=== PATIENT | female | born 1965 | race Caucasian/White ===

== ENCOUNTER 2022-06-28 08:58 | Emergency (ER) | payer BC, SELFPAY ==
[2022-06-28 09:04] VITALS: BP 120/72; PULSE 120; RESP 20; TEMP 37.2; O2SAT 90; BMI 24.9
--- NOTE | 2022-06-28 09:22 | CRLHL7_ITS ---
For Patients: As a result of the Cures Act, medical imaging exams and procedure reports are released immediately into your electronic medical record. You may view this report before your referring provider. If you have questions, please contact your health care provider. INDICATION: COUGH TECHNIQUE: Chest 2 views COMPARISON: None FINDINGS: Cardiovascular and mediastinum: Heart size and vasculature are normal in caliber and appearance. Lungs and pleural spaces: Patchy airspace densities right upper lobe. No sign of pleural effusion. No pneumothorax. Bones and soft tissues: No significant findings. IMPRESSION: Right upper lobe pneumonia. Dictated by Jose Sanderson MD @ 06/28/2022 10:19:20 AM (Electronically Signed)
--- NOTE | 2022-06-28 09:23 | ED_ITS ---
HPI - General Adult General Chief complaint: Shortness of Breath/Dyspnea Stated complaint: cough Time Seen by Provider: 06/28/22 09:18 History of Present Illness HPI narrative: This 56-year-old female comes in reporting cough and some shortness of breath. She does have a history of COPD and states that her oximetry is typically around 92%. She does have oxygen that she uses at home on occasion. She states that she began to feel ill with upper respiratory infection about 2 and half days ago. She states that her daughter was positive for RSV. She does not report any fevers. She does arrive with tachycardia and heart rate at 120 beats per minute. She does not report any chest pain. Related Data Home Medications Medication Instructions Recorded Confirmed albuterol sulfate 90 mcg/actuation inhalation 06/28/22 aerosol inhaler amitriptyline 10 mg tablet mg 06/28/22 fluticasone 250 mcg-salmeterol 50 inhalation 06/28/22 mcg/dose blistr powdr for inhalation (Advair Diskus) loperamide 2 mg capsule mg 06/28/22 roflumilast 500 mcg tablet mcg 06/28/22 tiotropium bromide 18 mcg capsule inhalation 06/28/22 with inhalation device (Spiriva with HandiHaler) Previous Rx's Medication Instructions Recorded levofloxacin 500 mg tablet 500 mg PO DAILY 10 days #10 tabs 06/28/22 Allergies Allergy/AdvReac Type Severity Reaction Status Date / Time Sulfa (Sulfonamide Allergy Verified 06/28/22 09:08 Antibiotics) Review of Systems Status of ROS: Reports: 10 or more systems reviewed and unremarkable except as noted in History and below Narrative: Constitutional: No fevers, no weight gain or loss. Eyes: No discharge. No vision changes. HENT: No congestion, no sore throat, no ear pain. Cardiovascular: No chest pain, no palpitations. Respiratory: Cough and shortness of breath. History of COPD. Gastrointestinal: No abdominal pain, no vomiting, no diarrhea. Genitourinary: No dysuria, no hematuria. Musculoskeletal: Normal range of motion. Skin: No rashes, no pruritis. Neurological: No dizziness, weakness, sensory change, speech change. Endo/Heme/Allergies: No bruising or bleeding. No polydipsia. Pysch: no suicidality, no anxiety, no insomnia. All other systems reviewed and are negative. PFSH PFSH Social History Smoking Status: Never smoker Do you use any of these nicotine containing products: None How often do you have a drink containing alcohol: never How often do you have six or more drinks on one occasion: Never AUDIT-C Alcohol total score: 0 Exam Narrative: Exam Narrative: Constitutional: Well-developed, well-nourished, no acute distress. HEENT: Normocephalic, atraumatic. Neck: Normal range of motion. Nontender. Supple. Heart: Regular. No murmurs. Tachycardia. Intact distal pulses. Lungs: Clear to auscultation. No chest discomfort. No wheezes, rhonchi, or rales. Abdomen: Normal bowel sounds. Nontender. No rebound tenderness. Genitalia: Deferred. Back: No midline tenderness. Normal range of motion. Extremities: Normal range of motion. No injury. Skin: Intact. No rash. Warm. No erythema or pallor. Neurologic: No altered sensation. No weakness. Alert and oriented. Psychiatric: No suicidality. No anxiety or depression. No insomnia. Nursing notes and vitals signs are reviewed. Const: Vital Signs, click to edit/add: Vital Signs - 24 hr 06/28/22 09:04 Temperature 98.9 F Pulse Rate [Right Pulse Oximeter] 120 H Respiratory Rate 20 Blood Pressure [Ri ght Upper Arm] 120/72 Pulse Oximetry 90 Oxygen Delivery Me thod Room Air Course Vital Signs Vital signs: Initial Vital Signs Temperature 98.9 F 06/28/22 09:04 Temperature Source Temporal Artery Scan 06/28/22 09:04 Pulse Rate 120 H 06/28/22 09:04 Respiratory Rate 20 06/28/22 09:04 Blood Pressure 120/72 06/28/22 09:04 Blood Pressure Mean 88 06/28/22 09:04 Blood Pressure Position Sitting 06/28/22 09:04 Pulse Oximetry 90 06/28/22 09:04 Oxygen Delivery Method 06/28/22 09:04 Vital Signs Temperature 98.9 F 06/28/22 09:04 Pulse Rate 120 H 06/28/22 09:04 Respiratory Rate 20 06/28/22 09:04 Blood Pressure 120/72 06/28/22 09:04 Pulse Oximetry 90 06/28/22 09:04 Oxygen Delivery Method 06/28/22 09:04 Temperature 98.9 F 06/28/22 09:04 Pulse Rate 120 H 06/28/22 09:04 Respiratory Rate 20 06/28/22 09:04 Blood Pressure 120/72 06/28/22 09:04 Pulse Oximetry 90 06/28/22 09:04 Oxygen Delivery Method 06/28/22 09:04 Medical Decision Making MDM Narrative Medical decision making narrative: This patient comes in with cough and increasing shortness of breath. She does have a baseline COPD history. She does have oxygen in a can and that she uses as needed. She does have some tachycardia but is maintaining her typical baseline oximetry. Chest x-ray shows evidence of a pneumonia in the right upper lobe. Patient received a prescription for Levaquin. She has an appointment to follow-up with her primary physician. The patient did receive an oral dose of dexamethasone here. She has breathing treatments that she uses regularly and as needed at home. Imaging Data Chest x-ray: Radiologist's impression: Right upper lobe pneumonia. Discharge Plan Discharge Clinical Impression: Community acquired pneumonia Patient Disposition: Home, Self-Care Condition: Unchanged Additional Instructions: Take medication as prescribed. Follow up with MD or return if worsening symptoms happen. Prescriptions: New levofloxacin 500 mg tablet 500 mg PO DAILY 10 Days Qty: 10 0RF No Action fluticasone propion-salmeterol [Advair Diskus] 250-50 mcg/dose blister with device INHALATION Label Comments: INHALE 1 PUFF BY MOUTH EVERY 12 HOURS loperamide 2 mg capsule Label Comments: TAKE 1 CAPSULE BY MOUTH EVERY MORNING amitriptyline 10 mg tablet albuterol sulfate 90 mcg/actuation HFA aerosol inhaler INHALATION Label Comments: INHALE 1 TO 2 PUFFS BY MOUTH EVERY 4 HOURS WHILE AWAKE Spiriva with HandiHaler 18 mcg capsule, w/inhalation device INHALATION roflumilast 500 mcg tablet Follow Up/Referrals: Romel Moffett MD [Primary Care Provider] - Stand Alone Forms: [facility] Info Instructions
[2022-06-28] MEDS: IPRAT-ALBUT 0.5-2.5 MG/3 ML NEB 1 NEB IH (09:53)
[2022-06-28] MEDS: dexAMETHasone 10 MG/ML inj PO (09:53)
--- OUTSIDE RECORDS SUMMARY | 2022-06-28 10:12 | XMS_ITS | Clinical Summary ---
:1965 Author Organization [facility] [employer] [facility] [place] [address] Care Team Providers Name Role Phone Romel Moffett MD Primary Care Provider Allergies Active Allergy Reactions Severity Noted Date Comments Aspartame Headache 08/18/2021 Egg 2010 Gi Gluten Diarrhea 05/16/2015 Hepatitis B Virus GI Upset, Headache 02/11/2012 Vaccine Influenza Vacc,Tri 2007 Diarrhea, Fever, 09/16/2013 (Live) Vomiting Milk Containing Diarrhea 04/06/2016 Products Tetanus And Diphtheria Fever, GI Bleeding, 03/13/2013 Patient states that Toxoids, Adsorbed, Headache she was n ot able use Adult her arm for two days, sore and limited movemen t, numbness and mu scle seem to spasm. Medications Medication Sig Dispensed Refills Start End Date Status Date fluticasone Inhale 1 Puff 180 Each 3 Acti ve propion-salmeteroL by mouth every 1 (Advair Diskus) 12 hours. 250-50 mcg/Dose diskus inhalerIndications : Chronic obstructive pulmonary disease, unspecified COPD type (HC) albuterol HFA Inhale 1-2 3 Each 4 Activ e (PRO-AIR; Puffs by mouth 1 VENTOLIN; every 4 hours PROVENTIL) 90 while awake. mcg/actuation inhalerIndications : Chronic obstructive pulmonary disease, unspecified COPD type (HC) amitriptyline Take 1 Tablet 180 tablet. 3 Active (ELAVIL) 10 mg (10 mg) by 1 tabletIndications: mouth 2 times Irritable bowel daily. syndrome with diarrhea loperamide Take 2 mg 90 Tablet 3 Active (IMODIUM) 2 mg daily in the 1 tabletIndications: AM Irritable bowel syndrome with diarrhea loperamide Take 2 mg by 0 Active (IMODIUM) 2 mg mouth. 1 capsule roflumilast Take 500 mcg 90 Tablet 3 Activ e (Daliresp) 500 mcg by mouth once 2 tabletIndications: daily. Chronic obstructive pulmonary disease, unspecified COPD type (HC) tiotropium Inhale 1 90 Capsule 3 Active (spiriva) 18 mcg Capsule (18 2 inhalation mcg) by mouth capsuleIndications once daily. : Chronic Using a SPRIVA obstructive HANDIHALER pulmonary disease, varela the unspecified COPD capsule, then type (HC) by mouth breathe in the powder. Inhale twice from the same capsule for full dose. roflumilast Take 500 mcg 90 Tablet 3 06/24/20 Disco ntinued (Daliresp) 500 mcg by mouth once 1 22 (Reorder tabletIndications: daily. ( E-cancel not Chronic sent)) obstructive pulmonary disease, unspecified COPD type (HC) spiriva 18 mcg USE INHALER TO 30 Each 0 06/24/20 Discontinued inhalation VARELA & 2 22 (Reorder capsuleIndications INHALE ( E-cancel not : Chronic CONTENTS OF 1 sent)) obstructive CAPSULE DAILY. pulmonary disease, INHALE 2X FROM unspecified COPD EACH CAP FOR type (HC) FULL DOSE Active Problems Problem Noted Date COPD (chronic obstructive pulmonary disease) 4 Encounters Date Type Specialty Care Team Description 06/01/2022 RefRomel Michel MD Refi ll Request (Spiriva) 05/14/2022 RefRomel Michel MD Refi ll Request (Spiriva) 05/12/2022 Telephone Romel Moffett MD Prio r Authorization (roflumilast (D aliresp) 500 mcg tablet APPROVED 04/12/2022-04/19) from Last 3 Months Immunizations Name Administration Dates Next Due Hepatitis B (Adult) 01/25/2003 Influenza, IIV3 (Age >=3 years) 08/10/2013 Td (Age >=7 Years) 01/25/2003 Td, Preservative Free (age >= 7 02/10/2013 Years) Tuberculin (PPD) 02/08/2013, 02/17/2012, 01/26/2012, 12/10/2010 Family History Medical History Relation Name Comments Cancer Mother Lung Relation Name Status Comments Mother Social History Tobacco Use Types Packs/Day Years Used Date Smoking Tobacco: Former Cigarettes 1.5 24 Quit : 07/19/2007 Smokeless Tobacco: Never Tobacco Cessation: Counseling Given: Yes Comments: smoked 1-2 pks a day Alcohol Use Standard Drinks/Week Comments Yes 0 (1 standard drink = 0.6 oz pure alcoho l) Occasional Alcohol Habits Answer Date Recorded How often do you have a drink containing 4 or more times a w citizen [place] 10/03/2019 alcohol? How many drinks containing alcohol do you have 1 or 2 10/03/2019 on a typical day when you are drinking? How often do you have six or more drinks on one Never 10/03/2019 occasion? Sex Assigned at Date Recorded Not on file Obstetrics History Last Filed Vital Signs Vital Sign Reading Time Taken Comments Blood Pressure 145/90 08/18/2021 9:44 AM TIG WELDER Pulse 85 08/18/2021 9:44 AM TIG WELDER Temperature 36.9 ??C (98.4 ??F) 06/29/2017 10:55 AM TIG WELDER Respiratory Rate 20 07/02/2014 1:21 PM TIG WELDER Oxygen Saturation 95% 08/18/2021 9:41 AM TIG WELDER Inhaled Oxygen Concentration - - Weight 63.1 kg (139 lb 3.2 oz) 08/18/2021 9:41 AM TIG WELDER Height 161.7 cm (5' 3.68) 08/18/2021 9:41 AM TIG WELDER Body Mass Index 24.13 08/18/2021 9:41 AM TIG WELDER Plan of Treatment Upcoming Encounters Date Type Specialty Care Team Description 07/07/2022 Telemedicine Romel Moffett MD [facility] [id number] (Wo rk) Health Maintenance Due Date Last Done Comments COVID-19 vaccine series (#1) 02/17/1965 Pap test for age 21-65 1985 Colonoscopy through age 75 2009 Mammogram for age 45-75 2009 Zoster (shingles) series for age 0208/20/2014 50+ (1 of 2) Low Dose CT (for lung CA) age 0702/08/2016 02/07/2015 50-80 Depression screening for age 12+ 03/21/2021 03/21/2020, 06/2017, 04/06/2016 BMI (ht and wt on same day) for 08/18/2022 08/18/2021, 01/2019, age 18+ 06/29/2017, Additional history exists Tetanus booster 02/10/2023 02/10/2013, 01/25/2003 Lipids for age 45-75 03/27/2025 03/27/2020, 02/07/2015 HIV for age 15-65 Completed 12/02/2015 Hepatitis C screening for age Completed 12/02/2015 18-79 Results Not on filefrom Last 3 Months Insurance Payer Benefit Plan / Subscriber ID Effective Dates Phone Addre ss Type Group WC WORK[employer] [id number] 2015-Prese [address] [employer] [phone] [place] [address] [employer] OF [id number] 2014-[place] [address] [id number] [place] t [facility] [place] [address] Carmela Gomez Workers Comp Self 1965 [address] (Home) [address] [phone] Care Teams Production Operations Engineer Relationship Specialty Start Date End Date Romel Moffett MD PCP - General Family Practice 09/24/[address] [place] [address]
[2022-06-28 12:03] LABS: PCR FLU A Negative PCR FLU A (Negative); PCR FLU B Negative PCR FLU B (Negative); PCR RSV Negative PCR RSV (Negative)
[2022-06-28 12:05] LABS: SARS PCR* POSITIVE SARS-CoV-2 (Negative)
== END 2022-06-28 11:21 | disposition home or self-care (01) ==
PROVIDERS: Emergency Provider Emergency Medicine Emergency Medical Services; PCP Surgery; Referring Provider Surgery; Visit Provider Surgery
DX: J18.9 Pneumonia, unspecified organism (principal)
CPT/HCPCS: 71046; 87502; 87634; 87635; 94640; 99284; 99285; J1100

== ENCOUNTER 2022-07-21 08:51 | Outpatient (CLI) | payer BC, SELFPAY | END 2022-07-21 08:52 | disposition home or self-care (01) | LOC: AMB 14:15 | PROVIDERS: PCP Surgery; Visit Provider Family Medicine | DX: R06.09 Other forms of dyspnea (principal); R51.9 Headache, unspecified | CPT/HCPCS: A0425; A0427 ==

== ENCOUNTER 2022-07-21 09:18 | Emergency (ER) | payer BC, SELFPAY ==
[2022-07-21] VITALS (13 sets, daily range): BP systolic 137–168; BP diastolic 97–119; PULSE 96–112; RESP 21; TEMP 37.4; O2SAT 86–94; BMI 24.8
--- NOTE | 2022-07-21 09:52 | CRLHL7_ITS ---
For Patients: As a result of the Century Cures Act, medical imaging exams and procedure reports are released immediately into your electronic medical record. You may view this report before your referring provider. If you have questions, please contact your health care provider. INDICATION: Cough and dyspnea COMPARISON: June 28, 2022 TECHNIQUE: PA and lateral views of the chest were acquired FINDINGS: TUBES AND LINES: None. HEART AND MEDIASTINUM: The heart size is normal. The mediastinal contour appears normal for patient age. LUNGS AND PLEURAL SPACES: Airspace consolidation at the medial segment of the right middle lobe and partial collapse of the medial segment of the right middle lobe. This is usually inflammatory. Follow-up to complete resolution is advised.The pleural spaces are unremarkable.Hyperinflation probably related to COPD. OSSEOUS STRUCTURES: Age-appropriate appearance. No acute focal finding. IMPRESSION: Airspace consolidation at the medial segment of the right middle lobe and partial collapse of the medial segment of the right middle lobe. This is usually inflammatory. Follow-up to complete resolution is advised. Hyperinflation probably related to COPD. Dictated by Tray Daley MD @ 07/21/2022 10:36:10 AM (Electronically Signed)
--- NOTE | 2022-07-21 09:55 | ED_ITS ---
HPI - SOB/Dyspnea General Date Seen: 07/21/22 Chief Complaint: Shortness of Breath/Dyspnea Stated Complaint: Difficulty breathing Time Seen by Provider: 07/21/22 09:40 Source: patient, EMS, RN notes reviewed and old records reviewed Mode of arrival: EMS Limitations: no limitations History of Present Illness HPI Narrative: Patient is a 56-year-old female who was walking out to her car today and became acutely short of breath, she has had this before in the past but never to this degree, she has had no we of breathing, she is on oxygen that she uses, bottle in a bag situation, she was unable to really get her oxygen back, or feel better, called the ambulance and she is brought in here she now feels better, after a DuoNeb, with saturations in the 92-94%, she tells me her baseline is a round 90 and 92. Two weeks ago she tested positive for COVID, and also had right upper lobe pneumonia was placed on Levaquin, she also underwent a 2 week course of prednisone, she is came off this yesterday but 3-4 days ago felt increasing shortness of breath. Has been using her nebulize treatments normally, denies any fevers chills or sweats denies any leg swelling, she is not coughing up any blood or any purulence, has used no [id number] medications other than her prescribed medications. No past history of a pulmonary emboli or heart issues. She is the RN, works at a care facility Past medical history of COPD, the came on 5 years after she quit smoking. MD elicited complaint: shortness of breath Pertinent past history: COPD Onset (ago): minute(s) Context: recent illness and occurred during exertion Timing: now resolved Severity: severe Exacerbating factors: exertion Relieving factors: bronchodilators Known history of: COPD Associated symptoms: denies other symptoms Related Data Home oxygen amount: as needed at night Home Medications Medication Instructions Recorded Confirmed albuterol sulfate 90 mcg/actuation inhalation 06/28/22 aerosol inhaler amitriptyline 10 mg tablet mg 06/28/22 fluticasone 250 mcg-salmeterol 50 inhalation 06/28/22 mcg/dose blistr powdr for inhalation (Advair Diskus) loperamide 2 mg capsule mg 06/28/22 roflumilast 500 mcg tablet mcg 12/11/22 tiotropium bromide 18 mcg capsule inhalation 06/28/22 with inhalation device (Spiriva with HandiHaler) Previous Rx's Medication Instructions Recorded levofloxacin 500 mg tablet 500 mg PO DAILY 10 days #10 tabs 06/28/22 amoxicillin 875 mg-potassium 1 tab PO BID #28 tabs 07/21/22 clavulanate 125 mg tablet azithromycin 250 mg tablet See Rx Instructions PO .COMPLEX #6 07/21/22 (Zithromax Z-Ashutosh) tabs prednisone 10 mg tablets in a dose See Rx Instructions PO .COMPLEX 07/21/22 pack #21 ea Allergies Allergy/AdvReac Type Severity Reaction Status Date / Time Sulfa (Sulfonamide Allergy Verified 07/21/22 11:46 Antibiotics) Review of Systems Status of ROS: Reports: 10 or more systems reviewed and unremarkable except as noted in History and below [facility] Social History Smoking Status: Never smoker Do you use any of these nicotine containing products: None How often do you have a drink containing alcohol: never How often do you have six or more drinks on one occasion: Never AUDIT-C Alcohol total score: 0 Non-prescribed substance use: denies use service: No Exam Narrative: Exam Narrative: Patient is peaking normally, no problem with slurring words, oriented x3. Head eyes ears nose and throat exam show equal pupils, no scleral icterus, extraocular muscles are normal, no facial droop, speech is normal, trachea normal and midline. Thyroid normal midline palpable not enlarged. Chest shows symmetrical rise bilaterally, normal auscultation with no wheezes, no increased work of breathing, no overt bruising or lesions seen, no tenderness is noted on auscultation. She is speaking to me in full sentences, Heart sounds normal with no S3-S4 no murmurs clicks or gallops. Abdomen shows no obvious masses or hepatosplenomegaly, no organomegaly, bowel sounds are normal in all quadrants. No tenderness is noted also in all quadrants. Upper and lower extremities show normal power, normal range of motion, pulses are normal, sensations normal, fine motor movements are normal, pelvis is stable to rocking. Cervical spine shows normal range of motion, and palpably not tender. Thoracic spine shows normal range of motion, and palpably not tender, lumbar spine shows no tenderness to palpation percussion and is otherwise normal range of motion. Skin shows no rashes, petechiae or eccymosis. No edema of the lower extremities, negative Homans sign. Const: Vital Signs, click to edit/add: Vital Signs - 24 hr 07/21/22 09:26 07/21/22 09:41 07/21/22 10:39 Temperature 99.3 F Pulse Rate 112 H Pulse Rate [Pulse Oximeter] 112 H Respiratory Rate 21 Blood Pressure Blood Pressure [Ri ght Upper Arm] 168/119 H Pulse Oximetry 86 L 94 Oxygen Delivery Me thod Room Air Room Air 07/21/22 09:44 07/21/22 10:01 07/21/22 10:01 Temperature Pulse Rate 108 H 110 H 107 H Pulse Rate [Pulse Oximeter] Respiratory Rate Blood Pressure 139/107 H 156/98 H Blood Pressure [Ri ght Upper Arm] Pulse Oximetry 94 90 91 Oxygen Delivery Me thod 07/21/22 10:30 07/21/22 10:31 07/21/22 10:33 Temperature Pulse Rate 106 H 106 H 105 H Pulse Rate [Pulse Oximeter] Respiratory Rate Blood Pressure 137/102 H Blood Pressure [Ri ght Upper Arm] Pulse Oximetry 89 89 87 L Oxygen Delivery Me thod 07/21/22 11:01 07/21/22 11:01 07/21/22 11:30 Temperature Pulse Rate 102 H 101 H 106 H Pulse Rate [Pulse Oximeter] Respiratory Rate Blood Pressure 142/97 H Blood Pressure [Ri ght Upper Arm] Pulse Oximetry 89 90 90 Oxygen Delivery Me thod 07/21/22 12:00 07/21/22 12:05 07/21/22 12:30 Temperature Pulse Rate 99 100 98 Pulse Rate [Pulse Oximeter] Respiratory Rate Blood Pressure Blood Pressure [Ri ght Upper Arm] Pulse Oximetry 91 93 91 Oxygen Delivery Me thod 07/21/22 12:32 Temperature Pulse Rate 96 Pulse Rate [Pulse Oximeter] Respiratory Rate Blood Pressure 150/99 H Blood Pressure [Ri ght Upper Arm] Pulse Oximetry 94 Oxygen Delivery Me thod Documenting provider has reviewed patient's vital signs: yes Course Course Hospital Course: Spoke to [place] to her CT scan of her chest showed no evidence of blood clot, there was consolidation and collapse of the right middle lobe, will need follow- up chest x-rays CT in 1-3 re months. I would recommend prednisone along with antibiotics, worsening then she should come back and be seen you have oxygen at home to use. Antibiotics we should switch to Augmentin along with Zithromax to cover for atypicals as you resend Levaquin, lots of yogurt and other probiotic types things, to try to fajardo off possibility of C diff. return here if worsening shortness of breath chest pain or other issues. Vital Signs Vital signs: Initial Vital Signs Temperature 99.3 F 07/21/22 09:26 Temperature Source Temporal Artery Scan 07/21/22 09:26 Pulse Rate 112 H 07/21/22 09:26 Pulse Rhythm 07/21/22 09:26 Pulse Strength 3+ Normal 07/21/22 09:26 Respiratory Rate 21 07/21/22 09:26 Blood Pressure 168/119 H 07/21/22 09:26 Blood Pressure Mean 135 07/21/22 09:26 Blood Pressure Position Sitting 07/21/22 09:26 Pulse Oximetry 86 L 07/21/22 09:26 Oxygen Delivery Method 07/21/22 09:26 Vital Signs Temperature 99.3 F 07/21/22 09:26 Pulse Rate 112 H 07/21/22 09:26 Respiratory Rate 21 07/21/22 09:26 Blood Pressure 168/119 H 07/21/22 09:26 Pulse Oximetry 86 L 07/21/22 09:26 Oxygen Delivery Method 07/21/22 09:26 Temperature 99.3 F 07/21/22 09:26 Pulse Rate 96 07/21/22 12:32 Respiratory Rate 21 07/21/22 09:26 Blood Pressure 150/99 H 07/21/22 12:32 Pulse Oximetry 94 07/21/22 12:32 Oxygen Delivery Method 07/21/22 10:39 MDM - SOB/Dyspnea MDM Narrative Medical decision making narrative: Life-threatening differential diagnosis includes occluded COPD exacerbation, pulmonary edema, acute coronary syndromes, pulmonary embolism, pneumonia, and pneumothorax. Other differential diagnosis considerations include asthma, bronchitis as well as other etiologies Differential Diagnosis Differential diagnosis: Likely acute exacerbation of chronic obstructive airways disease, congestive heart failure, community acquired pneumonia, asthma with exacerbation and pulmonary embolism Medical Records Attestation: I reviewed the patient's medical records. Lab Data Attestation: I reviewed the patient's lab results. Labs: Lab Results 07/21/22 07/21/22 07/21/22 Range/Units 09:55 09:55 09:55 WBC 10.46 (4.50-11.00) K/uL RBC 4.62 (4.00-5.20) m/uL Hgb 15.6 (12.0-16.0) gm/dL Hct 47.5 (33.0-51.0) % MCV 103 H (80-100) fL MCH 34 (26-34) pg MCHC 33 (32-36) gm/dL RDW Coeff of Yue 13.5 (11.5-15.5) % Plt Count 225 (140-440) K/uL Neut % (Auto) 89.2 H (42.0-72.0) % Lymph % (Auto) 6.8 L (20-44) % [place] % (Auto) 3.1 (0.0-11.0) % Eos % (Auto) 0.1 (0.0-7.0) % Baso % (Auto) 0.1 (0.0-3.0) % Neut # (Auto) 9.30 H (1.7-7.0) K/uL Lymph # (Auto) 0.70 L (0.90-2.90) K/uL [place] # (Auto) 0.30 (0.00-0.90) K/UL Eos # (Auto) 0.01 (0.00-0.50) K/uL Baso # (Auto) 0.01 (0.00-0.30) K/uL Diff Slide Review Acceptable Review (Acceptable) INR 0.89 L (0.91-1.10) APTT 25 (23-33) Seconds D-Dimer Quant (PE/DVT) 2.23 H (0.00-0.50) ug/ml VBG pH (7.32-7.43) VBG pCO2 (40-50) mmHG VBG pO2 (25-47) mmHG VBG HCO3 (21-28) mmol/L Sodium 138 (135-149) mmol/L Potassium 4.4 (3.6-5.1) mmol/L Chloride 104 (96-114) mmol/L Carbon Dioxide 24 (20-32) mmol/L BUN 20 (7-30) mg/dL Creatinine 0.6 (0.5-1.5) mg/dL Estimated Creat Clear 85.57 Estimated GFR 105 ml/min Glucose 116 H (60-115) mg/dL Calcium 9.4 (8.4-10.6) mg/dL NT-Pro-B Natriuret Pep 72 pg/mL Procalcitonin 0.12 (<0.50) ng/mL SARS-CoV-2 (PCR) (Negative) Influenza Type A (PCR) (Negative) Influenza Type B (PCR) (Negative) RSV (PCR) (Negative) POC Troponin I (0.01-0.04) ng/ml 07/21/22 07/21/22 07/21/22 Range/Units 09:55 09:55 10:18 WBC (4.50-11.00) K/uL RBC (4.00-5.20) m/uL Hgb (12.0-16.0) gm/dL Hct (33.0-51.0) % MCV (80-100) fL MCH (26-34) pg MCHC (32-36) gm/dL RDW Coeff of Yue (11.5-15.5) % Plt Count (140-440) K/uL Neut % (Auto) (42.0-72.0) % Lymph % (Auto) (20-44) % [place] % (Auto) (0.0-11.0) % Eos % (Auto) (0.0-7.0) % Baso % (Auto) (0.0-3.0) % Neut # (Auto) (1.7-7.0) K/uL Lymph # (Auto) (0.90-2.90) K/uL [place] # (Auto) (0.00-0.90) K/UL Eos # (Auto) (0.00-0.50) K/uL Baso # (Auto) (0.00-0.30) K/uL Diff Slide Review (Acceptable) INR (0.91-1.10) APTT (23-33) Seconds D-Dimer Quant (PE/DVT) (0.00-0.50) ug/ml VBG pH 7.490 H (7.32-7.43) VBG pCO2 35 L (40-50) mmHG VBG pO2 46.1 (25-47) mmHG VBG HCO3 27 (21-28) mmol/L Sodium (135-149) mmol/L Potassium (3.6-5.1) mmol/L Chloride (96-114) mmol/L Carbon Dioxide (20-32) mmol/L BUN (7-30) mg/dL Creatinine (0.5-1.5) mg/dL Estimated Creat Clear Estimated GFR ml/min Glucose (60-115) mg/dL Calcium (8.4-10.6) mg/dL NT-Pro-B Natriuret Pep pg/mL Procalcitonin (<0.50) ng/mL SARS-CoV-2 (PCR) Negative SARS-CoV-2 (Negative) Influenza Type A (PCR) Negative PCR FLU A (Negative) Influenza Type B (PCR) Negative PCR FLU B (Negative) RSV (PCR) POSITIVE PCR RSV A (Negative) POC Troponin I 0.01 (0.01-0.04) ng/ml Imaging Data Chest x-ray: Attestation: I have reviewed the pertinent imaging results. My impression: Flattened diaphragms consistent with COPD the right upper lobe infiltrate that was apparent 2 weeks ago has improved, no longer apparent. Await radiological over-read CT scan - chest: Radiologist's impression: Patient: TAMARA AIKEN Facility:?[facility] Patient ID:?[id number] Site Patient ID:?[id number]. Site :?[id number] Study:?CT Chest Angio W/ 95CC [id number] PE PROTOCOL-07/21/2022 11:50:47 AM Ordering Physician:?Kym Mcknight Final Report: INDICATION: Shortness of breath; elevated D-dimer. COMPARISON: Two-view chest July 21, 2022 and June 28, 2022. TECHNIQUE: CT chest with intravenous contrast; coronal and sagittal reformats. FINDINGS: No CT evidence of acute or chronic pulmonary thromboembolism. No evidence of aortic aneurysm or dissection. Normal size cardiac silhouette without any evidence of pericardial effusion. Consolidation /collapse right middle lobe. Resolution of the infiltrates in the right upper lobe when compared to June 28, 2022. COPD. Diffuse fatty infiltration of the liver IMPRESSION: 1. Consolidation and collapse right middle lobe; followup is needed. 2. COPD. 3. No evidence of pulmonary thromboembolism. 4. Resolution of the infiltrates in the right upper lobe and compared to June 2022 5. Diffuse fatty infiltration of the liver. Please note that all CT scans at this facility use dose modulation, iterative reconstruction, and/or weight-based dosing when appropriate to reduce radiation dose to as low as reasonably achievable. Dictated by Zachariah Kimble MD @ 07/21/2022 11:55:38 AM (Electronic Signature) ECG Data Attestation: I personally reviewed and interpreted this ECG as follows: ECG interpretation date: 07/21/22 ECG interpretation time: 10:23 Prior ECG tracings: not available for review Interpretation: EKG shows normal sinus rhythm with a ventricular rate of 102, no acute ST wave changes, Q-waves are noted in 2 3 and AVF, Assessment: Nonacute EKG Discharge Plan Discharge Clinical Impression: Community acquired pneumonia, Hypoxia, COPD (chronic obstructive pulmonary disease) Patient Disposition: Home w/ Parent or Adult Condition: Improved Instructions: COPD (Chronic Obstructive Pulmonary Disease) (DC), Community Acquired Pneumonia (DC), Hypoxia (ED) Additional Instructions: Home rest augment him along with Zithromax, prednisone tapering dose over the next 2 weeks. Recommend follow-up with primary care in the next 3 4 days, we will set this up. Return to the emergency room increasing chest pain shortness of breath or other issues.Follow up with your provider and will need repeat chest xray in 4-[address] in 1-3 months for the rml consolidation Follow up appointment is scheduled at the [facility] on 07/24 with an 11:45am arrival time. If you have any questions or need to reschedule, please call [phone]. [facility] [address] [place] [address] Activity Level: No Restrictions Discharge Diet: Regular Prescriptions: New amoxicillin-pot clavulanate 875-125 mg tablet 1 tab PO BID Qty: 28 0RF azithromycin [Zithromax Z-Ashutosh] 250 mg tablet See Rx Instructions .ROUTE .COMPLEX Qty: 6 0RF Rx Instructions: For 250 mg dose pack: take 500 mg today (day 1), then 250 mg for 4 days (days 2-5) prednisone 10 mg tablets,dose pack See Rx Instructions .ROUTE .COMPLEX Qty: 21 0RF Rx Instructions: orally per package directions No Action fluticasone propion-salmeterol [Advair Diskus] 250-50 mcg/dose blister with device INHALATION Label Comments: INHALE 1 PUFF BY MOUTH EVERY 12 HOURS loperamide 2 mg capsule Label Comments: TAKE 1 CAPSULE BY MOUTH EVERY MORNING amitriptyline 10 mg tablet albuterol sulfate 90 mcg/actuation HFA aerosol inhaler INHALATION Label Comments: INHALE 1 TO 2 PUFFS BY MOUTH EVERY 4 HOURS WHILE AWAKE Spiriva with HandiHaler 18 mcg capsule, w/inhalation device INHALATION roflumilast 500 mcg tablet levofloxacin 500 mg tablet 500 mg PO DAILY 10 Days Qty: 10 0RF Follow Up/Referrals: Romel Moffett MD [Primary Care Provider] - Stand Alone Forms: [place] Info Instructions
[2022-07-21 10:25] LABS: Chloride* 104 mmol/L (96-114); Sodium* 138 mmol/L (135-149)
[2022-07-21 10:26] LABS: Potassium* 4.4 mmol/L (3.6-5.1)
[2022-07-21 10:28] LABS: Creatinine* 0.6 mg/dL (0.5-1.5); Est. Creatinine Clearance* 85.57; Estimated Glomerular Filt Rate 105 ml/min; Troponin, Point-of-Care* 0.01 ng/ml (0.01-0.04)
[2022-07-21 10:29] LABS: Blood Urea Nitrogen* 20 mg/dL (7-30); Calcium* 9.4 mg/dL (8.4-10.6); Carbon Dioxide* 24 mmol/L (20-32); Glucose* 116 mg/dL (60-115)
[2022-07-21 10:38] LABS: INR 0.89 (0.91-1.10); Prothrombin Time 12.6 Seconds
[2022-07-21 10:39] LABS: Partial Thromboplastin Time* 25 Seconds (23-33)
[2022-07-21 10:40] LABS: D Dimer Quantitative* 2.23 ug/ml (0.00-0.50)
[2022-07-21 10:45] LABS: Procalcitonin* 0.12 ng/mL (<0.50)
[2022-07-21 10:46] LABS: NT Pro B Type NatriureticPept* 72 pg/mL
[2022-07-21 10:47] LABS: PCR FLU A Negative PCR FLU A (Negative); PCR FLU B Negative PCR FLU B (Negative); PCR RSV POSITIVE PCR RSV (Negative)
[2022-07-21 11:06] LABS: SARS PCR* Negative SARS-CoV-2 (Negative)
--- NOTE | 2022-07-21 11:09 | CRLHL7_ITS ---
For Patients: As a result of the Cures Act, medical imaging exams and procedure reports are released immediately into your electronic medical record. You may view this report before your referring provider. If you have questions, please contact your health care provider. INDICATION: Shortness of breath; elevated D-dimer. COMPARISON: Two-view chest July 21, 2022 and June 28, 2022. TECHNIQUE: CT chest with intravenous contrast; coronal and sagittal reformats. FINDINGS: No CT evidence of acute or chronic pulmonary thromboembolism. No evidence of aortic aneurysm or dissection. Normal size cardiac silhouette without any evidence of pericardial effusion. Consolidation /collapse right middle lobe. Resolution of the infiltrates in the right upper lobe when compared to June 28, 2022. COPD. Diffuse fatty infiltration of the liver IMPRESSION: 1. Consolidation and collapse right middle lobe; followup is needed. 2. COPD. 3. No evidence of pulmonary thromboembolism. 4. Resolution of the infiltrates in the right upper lobe and compared to June 2022 5. Diffuse fatty infiltration of the liver. Please note that all CT scans at this facility use dose modulation, iterative reconstruction, and/or weight-based dosing when appropriate to reduce radiation dose to as low as reasonably achievable. Dictated by Zachariah Kimble MD @ 07/21/2022 11:55:38 AM (Electronically Signed)
[2022-07-21 11:54] LABS: Basophils Absolute Auto 0.01 K/uL (0.00-0.30); Basophils Percent Auto 0.1 % (0.0-3.0); Eosinophils Absolute Auto 0.01 K/uL (0.00-0.50); Eosinophils Percent Auto 0.1 % (0.0-7.0); Hematocrit 47.5 % (33.0-51.0); Hemoglobin* 15.6 gm/dL (12.0-16.0); Immature Granulocytes Abs Auto 0.07 K/uL (0.00-0.30); Immature Granulocytes Pct Auto 0.7 %; Lymphocytes Percent Auto 6.8 % (20-44); Mean Corpuscular HGB Conc 33 gm/dL (32-36); Mean Corpuscular Hemoglobin 34 pg (26-34); Mean Corpuscular Volume 103 fL (80-100); Monocytes Percent Auto 3.1 % (0.0-11.0); Neutrophils Percent Auto 89.2 % (42.0-72.0); RDW Coefficient of Variation % 13.5 % (11.5-15.5); Red Blood Count 4.62 m/uL (4.00-5.20); White Blood Count* 10.46 K/uL (4.50-11.00)
[2022-07-21 11:58] LABS: Slide Review Reflex Yes
[2022-07-21 12:08] LABS: Platelet Count* 225 K/uL (140-440)
[2022-07-21 12:10] LABS: Slide Review Acceptable Review (Acceptable)
[2022-07-21 12:26] LABS: HCO3 VBG 27 mmol/L (21-28); PCO2 VBG 35 mmHG (40-50); PO2 VBG 46.1 mmHG (25-47)
[2022-07-21] MEDS: 0.9 % SODIUM CHLORIDE 500 ML 500 ML IV (12:27)
--- NOTE | 2022-07-22 11:40 | ED.NURSE ---
Anay called and wanted clarification on prednisone and Dr. Bergman clarified with pharmacy.
== END 2022-07-21 13:34 | disposition home or self-care (01) ==
PROVIDERS: Emergency Provider Family Medicine; PCP Surgery
DX: J44.9 Chronic obstructive pulmonary disease, unspecified (principal); J18.9 Pneumonia, unspecified organism
CPT/HCPCS: 36415; 36600; 71046; 71260; 80048; 82803; 83880; 84145; 84484; 85025; 85379; 85610; 85730; 87502; 87634; 87635; 93005; 99284; 99285; J7120; Q9967

== ENCOUNTER 2022-08-24 16:11 | Observation (INO) | payer BC, SELFPAY ==
[2022-08-24] VITALS (7 sets, daily range): BP systolic 136–158; BP diastolic 87–96; PULSE 88–105; RESP 18–21; TEMP 36.9–37.1; O2SAT 86–97; BMI 26.2; BMI 26.7
--- NOTE | 2022-08-24 16:27 | ED.NURSE ---
patient was sitting on the bed reading 83-4% on room air and placed on O2 at 2 liters via nc increased to 94% via pulse oximetry.
--- NOTE | 2022-08-24 16:29 | ED_ITS ---
HPI - General Adult General Time Seen by Provider: 16:29 Date Seen: 08/24/22 Chief complaint: Shortness of Breath/Dyspnea Stated complaint: dyspnea Time Seen by Provider: 08/24/22 16:24 Source: patient and RN notes reviewed Mode of arrival: ambulatory Limitations: no limitations History of Present Illness HPI narrative: David is a 57-year-old female with known COPD coming in with worsening hypoxia. She is had some significant respiratory issues over the last 2 months. In June, probably mid June she was diagnosed with COVID and then a right upper lobe pneumonia. She was on Levaquin and then 2 weeks of prednisone. She became ill again in July and was seen in our ER on 07/21/2022. She had a chest CT PE protocol with no evidence of blood clots but ongoing right pneumonia. She also was diagnosed with RSV at that time. She was placed on Augmentin and a Z- Ashutosh. She was given Medrol Dosepak. She states the Medrol Dosepak did nothing for her. Dr. Moffett placed her on a lengthy prednisone taper. When she went from 10 mg down to 5, she started having increasing hypoxia and shortness of breath. She has noted O2 sats this morning down to 64%. She will feel better were for while mid day between 10 into but then O2 sats will start to dwindle again into the 80s. She does not have any nasal cannula home oxygen. She has a little rescue type can of oxygen where she will take a few puffs of it. She has an appointment with her digital archivist on September 01. She states she was quite sick with the RSV, it scared her to the point that she would actually consider vaccinating for it if they do come out with 1. She is scheduled to have a follow-up chest CT noncontrast on the , discussed doing that here today given her worsening hypoxia. She notes no increased cough, no fevers chills, no chest pain, no lower extremity edema. She is just noticing increasing shortness of breath/hypoxia with her steroid taper. Related Data Home Medications Medication Instructions Recorded Confirmed albuterol sulfate 90 mcg/actuation 1 - 2 puff inhalation Q4H PRN 06/28/2202/07 aerosol inhaler amitriptyline 10 mg tablet 10 mg PO DAILY 06/28/22 08/25/22 fluticasone 250 mcg-salmeterol 50 1 inh inhalation Q12H 06/28/22 08/25/22 mcg/dose blistr powdr for inhalation (Advair Diskus) loperamide 2 mg capsule 2 mg PO DAILY 06/28/22 08/25/22 roflumilast 500 mcg tablet 500 mcg PO DAILY 06/28/22 08/25/22 tiotropium bromide 18 mcg capsule 1 cap inhalation DAILY 06/28/22 08/25/22 with inhalation device (Spiriva with HandiHaler) Previous Rx's Medication Instructions Recorded prednisone 20 mg tablet See Rx Instructions .Route 08/25/22 .COMPLEX #14 tabs Allergies Allergy/AdvReac Type Severity Reaction Status Date / Time Sulfa (Sulfonamide Allergy Verified 08/24/22 16:25 Antibiotics) dairy Allergy Uncoded 08/24/22 20:11 eggs Allergy Uncoded 08/24/22 20:11 flu vaccine Allergy Uncoded 08/24/22 20:11 gluten Allergy Uncoded 08/24/22 20:11 hepatitis b vaccine Allergy Uncoded 08/24/22 20:11 tdap Allergy Uncoded 08/24/22 20:11 Review of Systems Status of ROS: Reports: 10 or more systems reviewed and unremarkable except as noted in History and below [facility] Medical History (Updated 08/25/22 @ 13:20 by Marta Ohara MD) Excessive drinking alcohol IBS (irritable bowel syndrome) Macrocytosis without anemia Family History (Updated 08/24/22 @ 19:57 by Hubert Mccabe MD) Mother Lung cancer Social History (Updated 08/24/22 @ 19:58 by Hubert Mccabe MD) Narrative: She smoked a pack and half a day for about 24 years and quit in 2007. She drinks 3 glasses of wine per day. No recreational drug use. She lives with her , Juni, who is healthcare power of tax associate attorney. Code status is full. 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[place] Smoking Status: Former smoker Do you use any of these nicotine containing products: None How often do you have six or more drinks on one occasion: Never AUDIT-C Alcohol total score: 0 Non-prescribed substance use: denies use Caffeine: No service: No Exam Const: Vital Signs, click to edit/add: Vital Signs - 24 hr 08/24/22 16:18 08/24/22 16:39 08/24/22 16:39 Temperature 98.4 F Pulse Rate [Pulse Oximeter] 101 H Respiratory Rate 21 Blood Pressure [Ri ght Upper Arm] 158/96 H Pulse Oximetry 86 L 95 95 Oxygen Delivery Me thod Room Air Nasal Cannula 08/24/22 18:14 Temperature Pulse Rate [Pulse Oximeter] 99 Respiratory Rate Blood Pressure [Ri ght Upper Arm] Pulse Oximetry 97 Oxygen Delivery Me thod Nasal Cannula Documenting provider has reviewed patient's vital signs: yes Common normals: no apparent distress, average body habitus, oriented x3, no limitations, healthy appearing and alert General appearance: cooperative, comfortable, well kempt and well developed HENMT: Common normals: normocephalic, head/scalp atraumatic, hearing grossly normal bilaterally and external ears normal Head and scalp: normocephalic and atraumatic External ear: external ears normal Eye: Common normals: PERRL, EOMs intact bilaterally, conjunctivae normal and no scleral icterus Conjunctiva: conjunctiva(e) normal Pupil: PERRL Neck & C-Spine: Common normals: full ROM, no lymphadenopathy, supple, no meningeal signs, no JVD and thyroid normal Thyroid: thyroid normal Chest: Common normals: inspection of chest normal Resp: Common normals: normal respiratory effort, no retractions and no use of accessory muscles Other: Very diminished breath sounds throughout, no wheezing or crackles. Cardio: Common normals: no JVD, regular rate, regular rhythm, S1 normal heart sound, S2 normal heart sound, no gallops, no clicks and no murmurs Rate: regular rate Rhythm: regular rhythm Heart sounds: S1 normal and S2 normal GI: Common normals: Normal to inspection, nondistended, normoactive bowel sounds present, soft to palpation, non-tender, no hepatosplenomegaly and no masses Palpation: soft and no hepatosplenomegaly Extremity: Other: No lower extremity edema. Neuro: Common normals: oriented x3 Sensorium/orientation: alert Meningeal signs: no meningeal signs Psych: Appearance: well kempt Course Course Hospital Course: Will proceed with chest CT noncontrast. D-dimer was elevated last time in the 2 range with negative chest CT PE protocol. We have her on nasal cannula oxygen with improvement in her O2 sats. Will get full complement of labs. We discussed repeating the triple swab which she would like to do. She may still be positive for RSV on a PCR. It is theoretically possible she could still be positive for COVID but was negative at the beginning of July when she had the PCR done. If she is positive for COVID now would maybe need to consider that this is a new illness. Does not sound like she is sick with increasing respiratory symptoms but rather increasing hypoxia. If D-dimer is grossly elev ated, may need to reconsider imaging with PE protocol. It is possible that she is just sustained enough damage with all of these recent respiratory illnesses and superimposed pneumonia that she is not tolerating going down on her steroids and may require some more chronic low-dose prednisone. Reevaluation(s) Reevaluation #1: Have reviewed with patient the plan for admission. I will order 60 oral prednisone as advised by Dr. Mccabe. We unfortunately cannot discharge her with oxygen through the ED. she is in agreement with the plan. We will let her know if the radiologist over reads her CT with any concerning findings. We are still awaiting labs. Her point of care troponin came back at 0.08, we are confirming with the lab troponin. She has had no chest pain through this, has no edema. Her EKG is normal. Time: 18:15 Consultations Consultation #1: Have spoken with Dr. Mccabe the hospitalist. We are waiting the official read on her chest CT but neither of us are concerned that there is significant pneumonia there. We are going to give her oral prednisone, she will have to come into the hospital for oxygen support as she does not have this at home and we cannot dispense it from the ER. Time: 18:11 Vital Signs Vital signs: Initial Vital Signs Temperature 98.4 F 08/24/22 16:18 Temperature Source Temporal Artery Scan 08/24/22 16:18 Pulse Rate 101 H 08/24/22 16:18 Pulse Rhythm 08/24/22 16:18 Pulse Strength 3+ Normal 08/24/22 16:18 Respiratory Rate 21 08/24/22 16:18 Blood Pressure 158/96 H 08/24/22 16:18 Blood Pressure Mean 116 08/24/22 16:18 Pulse Oximetry 86 L 08/24/22 16:18 Oxygen Delivery Method 08/24/22 16:18 Vital Signs Temperature 98.4 F 08/24/22 16:18 Pulse Rate 101 H 08/24/22 16:18 Respiratory Rate 21 08/24/22 16:18 Blood Pressure 158/96 H 08/24/22 16:18 Pulse Oximetry 86 L 08/24/22 16:18 Oxygen Delivery Method 08/24/22 16:18 Temperature 98.1 F 08/25/22 15:35 Pulse Rate 84 08/25/22 15:35 Respiratory Rate 18 08/25/22 15:35 Blood Pressure 149/96 H 08/25/22 15:35 Pulse Oximetry 94 08/25/22 15:35 Oxygen Delivery Method 08/25/22 15:35 Oxygen Flow Rate 1 08/25/22 15:35 Medical Decision Making Lab Data Lab results reviewed: Yes I reviewed the patient's lab results Labs: Lab Results 08/24/22 08/24/22 08/24/22 Range/Units 16:39 17:11 17:11 WBC 9.08 (4.50-11.00) K/uL RBC 4.14 (4.00-5.20) m/uL Hgb 14.0 (12.0-16.0) gm/dL Hct 42.6 (33.0-51.0) % MCV 103 H (80-100) fL MCH 34 (26-34) pg MCHC 33 (32-36) gm/dL RDW Coeff of Yue 13.9 (11.5-15.5) % Plt Count 186 (140-440) K/uL Neut % (Auto) 78.9 H (42.0-72.0) % Lymph % (Auto) 14.5 L (20-44) % [place] % (Auto) 5.8 (0.0-11.0) % Eos % (Auto) 0.3 (0.0-7.0) % Baso % (Auto) 0.2 (0.0-3.0) % Neut # (Auto) 7.20 H (1.7-7.0) K/uL Lymph # (Auto) 1.30 (0.90-2.90) K/uL [place] # (Auto) 0.50 (0.00-0.90) K/UL Eos # (Auto) 0.03 (0.00-0.50) K/uL Baso # (Auto) 0.02 (0.00-0.30) K/uL Sodium 137 (135-149) mmol/L Potassium 3.4 L (3.6-5.1) mmol/L Chloride 105 (96-114) mmol/L Carbon Dioxide 23 (20-32) mmol/L BUN 12 (7-30) mg/dL Creatinine 0.6 (0.5-1.5) mg/dL Estimated Creat Clear 84.54 Estimated GFR 104 ml/min Glucose 100 (60-115) mg/dL Lactate (0.5-1.9) mmol/L Calcium 9.4 (8.4-10.6) mg/dL Troponin I (0.01-0.04) ng/mL C-Reactive Protein (0.5-1.0) mg/dL NT-Pro-B Natriuret Pep 96 pg/mL Procalcitonin (<0.50) ng/mL SARS-CoV-2 (PCR) Negative SARS-CoV-2 (Negative) Influenza Type A (PCR) Negative PCR FLU A (Negative) Influenza Type B (PCR) Negative PCR FLU B (Negative) RSV (PCR) Negative PCR RSV (Negative) POC Troponin I (0.01-0.04) ng/ml 08/24/22 08/24/22 08/24/22 Range/Units 17:11 17:11 17:11 WBC (4.50-11.00) K/uL RBC (4.00-5.20) m/uL Hgb (12.0-16.0) gm/dL Hct (33.0-51.0) % MCV (80-100) fL MCH (26-34) pg MCHC (32-36) gm/dL RDW Coeff of Yue (11.5-15.5) % Plt Count (140-440) K/uL Neut % (Auto) (42.0-72.0) % Lymph % (Auto) (20-44) % [place] % (Auto) (0.0-11.0) % Eos % (Auto) (0.0-7.0) % Baso % (Auto) (0.0-3.0) % Neut # (Auto) (1.7-7.0) K/uL Lymph # (Auto) (0.90-2.90) K/uL [place] # (Auto) (0.00-0.90) K/UL Eos # (Auto) (0.00-0.50) K/uL Baso # (Auto) (0.00-0.30) K/uL Sodium (135-149) mmol/L Potassium (3.6-5.1) mmol/L Chloride (96-114) mmol/L Carbon Dioxide (20-32) mmol/L BUN (7-30) mg/dL Creatinine (0.5-1.5) mg/dL Estimated Creat Clear Estimated GFR ml/min Glucose (60-115) mg/dL Lactate 0.7 (0.5-1.9) mmol/L Calcium (8.4-10.6) mg/dL Troponin I < 0.01 L (0.01-0.04) ng/mL C-Reactive Protein 6.4 H (0.5-1.0) mg/dL NT-Pro-B Natriuret Pep pg/mL Procalcitonin 0.10 (<0.50) ng/mL SARS-CoV-2 (PCR) (Negative) Influenza Type A (PCR) (Negative) Influenza Type B (PCR) (Negative) RSV (PCR) (Negative) POC Troponin I 0.08 H (0.01-0.04) ng/ml Imaging Data CT scan - chest: Attestation: I have reviewed the pertinent imaging results. My impression: My preliminary review of her chest CT, I do not see any further right upper lobe pneumonia, lungs show some changes of her COPD but I do not appreciate infiltrate. Need to await Radiology over-read. Radiologist's impression: Patient: TAMARA AIKEN Facility:?[facility] Patient ID:?[id number] Site Patient ID:?[id number]. Site :?[id number] Study:?CT Chest W/O-08/24/2022 5:40:28 PM Ordering Physician:Jovan Garcia Final Report: INDICATION: COPD, worsening hypoxia, recent pneumonia. TECHNIQUE: CT chest without contrast. COMPARISON: CT chest 07/21/2022. FINDINGS: Lungs and pleura: Bilateral emphysema. Resolved right middle lobe collapse. Unchanged areas of ground-glass versus mosaic attenuation of the upper lobes. No pleural effusions, pleural thickening, or pneumothorax. Heart and vasculature: Heart size is normal. Thoracic aorta and pulmonary artery are normal in caliber. Lymph nodes/mediastinum: No mediastinal, hilar, or axillary adenopathy. Chest wall: No masses. Upper abdomen: Hepatic steatosis. Otherwise, unremarkable. Bones: No acute findings or aggressive osseous lesion. Eccentric thoracic kyphosis. Old left 7th rib fracture. IMPRESSION: No acute findings within the chest. Resolved right middle lobe collapse. Unchanged areas of mosaic attenuation versus ground-glass within the upper lobes. This may be secondary to the patient`s underlying emphysema; however, the findings suggest underlying small vessel or small airways disease versus early fibrotic changes. Recommend attention on follow-up imaging. Hepatic steatosis. Please note that all CT scans at this facility use dose modulation, iterative reconstruction, and/or weight-based dosing when appropriate to reduce radiation dose to as low as reasonably achievable. Dictated by Zaki Lucas MD @ 08/24/2022 6:15:56 PM (Electronic Signature) ECG Data Attestation: I personally reviewed and interpreted this ECG as follows: (Sinus rhythm, 96 beats per minute, no acute changes. QT corrected 469 milliseconds on my reading of this EKG.) Prior ECG tracings: not available for review Critical Care Time Critical Care Time Critical Care Time: No Discharge Plan Discharge Clinical Impression: Hypoxia, COPD (chronic obstructive pulmonary disease) Patient Disposition: Admitted As Inpatient Condition: Improved Activity Level: Activity as Tolerated Discharge Diet: Regular
--- NOTE | 2022-08-24 16:38 | CRLHL7_ITS ---
For Patients: As a result of the Century Cures Act, medical imaging exams and procedure reports are released immediately into your electronic medical record. You may view this report before your referring provider. If you have questions, please contact your health care provider. INDICATION: COPD, worsening hypoxia, recent pneumonia. TECHNIQUE: CT chest without contrast. COMPARISON: CT chest 07/21/2022. FINDINGS: Lungs and pleura: Bilateral emphysema. Resolved right middle lobe collapse. Unchanged areas of ground-glass versus mosaic attenuation of the upper lobes. No pleural effusions, pleural thickening, or pneumothorax. Heart and vasculature: Heart size is normal. Thoracic aorta and pulmonary artery are normal in caliber. Lymph nodes/mediastinum: No mediastinal, hilar, or axillary adenopathy. Chest wall: No masses. Upper abdomen: Hepatic steatosis. Otherwise, unremarkable. Bones: No acute findings or aggressive osseous lesion. Eccentric thoracic kyphosis. Old left 7th rib fracture. IMPRESSION: No acute findings within the chest. Resolved right middle lobe collapse. Unchanged areas of mosaic attenuation versus ground-glass within the upper lobes. This may be secondary to the patient`s underlying emphysema; however, the findings suggest underlying small vessel or small airways disease versus early fibrotic changes. Recommend attention on follow-up imaging. Hepatic steatosis. Please note that all CT scans at this facility use dose modulation, iterative reconstruction, and/or weight-based dosing when appropriate to reduce radiation dose to as low as reasonably achievable. Dictated by Zaki Lucas MD @ 08/24/2022 6:15:56 PM (Electronically Signed)
[2022-08-24 17:19] LABS: Basophils Absolute Auto 0.02 K/uL (0.00-0.30); Basophils Percent Auto 0.2 % (0.0-3.0); Eosinophils Absolute Auto 0.03 K/uL (0.00-0.50); Eosinophils Percent Auto 0.3 % (0.0-7.0); Hematocrit 42.6 % (33.0-51.0); Immature Granulocytes Abs Auto 0.03 K/uL (0.00-0.30); Immature Granulocytes Pct Auto 0.3 %; Lactate* 0.7 mmol/L (0.5-1.9); Lymphocytes Percent Auto 14.5 % (20-44); Mean Corpuscular HGB Conc 33 gm/dL (32-36); Mean Corpuscular Hemoglobin 34 pg (26-34); Mean Corpuscular Volume 103 fL (80-100); Monocytes Percent Auto 5.8 % (0.0-11.0); Neutrophils Percent Auto 78.9 % (42.0-72.0); Platelet Count* 186 K/uL (140-440); RDW Coefficient of Variation % 13.9 % (11.5-15.5); Red Blood Count 4.14 m/uL (4.00-5.20); White Blood Count* 9.08 K/uL (4.50-11.00)
[2022-08-24 17:20] LABS: Slide Review Reflex No
[2022-08-24 17:28] LABS: Troponin, Point-of-Care* 0.08 ng/ml (0.01-0.04)
[2022-08-24 17:42] LABS: C Reactive Protein* 6.4 mg/dL (0.5-1.0)
[2022-08-24 17:48] LABS: PCR FLU A Negative PCR FLU A (Negative); PCR FLU B Negative PCR FLU B (Negative); PCR RSV Negative PCR RSV (Negative)
[2022-08-24 17:49] LABS: SARS PCR* Negative SARS-CoV-2 (Negative)
--- NOTE | 2022-08-24 18:17 | ED.NURSE ---
Headsup given to HS regarding admission.
--- NOTE | 2022-08-24 18:42 | ED.NURSE ---
Bed request sent. M/S aware.
[2022-08-24] MEDS: predniSONE 20 MG TABLET 60 MG PO (18:49)
--- NOTE | 2022-08-24 18:50 | ED.NURSE ---
Hospitalist in room.
[2022-08-24 19:08] LABS: Chloride* 105 mmol/L (96-114); Sodium* 137 mmol/L (135-149)
[2022-08-24 19:09] LABS: Potassium* 3.4 mmol/L (3.6-5.1)
[2022-08-24 19:11] LABS: Carbon Dioxide* 23 mmol/L (20-32); Creatinine* 0.6 mg/dL (0.5-1.5); Est. Creatinine Clearance* 84.54; Estimated Glomerular Filt Rate 104 ml/min
[2022-08-24 19:12] LABS: Blood Urea Nitrogen* 12 mg/dL (7-30); Calcium* 9.4 mg/dL (8.4-10.6); Glucose* 100 mg/dL (60-115)
[2022-08-24 19:27] LABS: NT Pro B Type NatriureticPept* 96 pg/mL; Troponin I* < 0.01 ng/mL (0.01-0.04)
--- NOTE | 2022-08-24 19:35 | ED.NURSE ---
VSS. Pt transported to M/S with belongings via w/c by EDT on 2LPM O2 via NC, tolerates well. accompanies Pt.
--- NOTE | 2022-08-24 19:51 | P.IMHP_ITS ---
Hospitalist- H&P: HPI History of Present Illness Date Seen: 08/24/22 Chief complaint: dyspnea Narrative: Carmela Gomez is a 57 year old female admitted through the emergency department with worsening dyspnea. Patient has diagnosis of COPD for about 10 years. This is due to cigarette smoking. She quit about 16 years ago. She has been well managed on inhaled bronchodilators, Spiriva and Advair up until June 2022 when she got COVID infection. She was mild to moderately ill for about a week but did not require hospitalization. She did get started on prednisone 40 mg daily about that time. July 2022 she got RSV infection and was continued on prednisone 40 mg daily. She thinks she had at least 2 weeks of prednisone 40 mg daily. The RSV infection was particularly severe. She was tapering off prednisone over the past few weeks. Ten days ago the prednisone was cut from to 20 mg daily to 10 mg daily and she immediately knew that she was having more trouble breathing. Six days ago the prednisone was cut from 10 mg daily to 5 mg daily and her breathing got worse. Two days ago she stopped prednisone and breathing got much worse again. She has not ever been on home oxygen. She has not needed prednisone since her initial diagnosis and treatment 10 years ago until the last 2 months. She reports no new symptoms of illness. She has had no cold, new cough, chest pain, fever. She has no increase or change in her sputum. She tells me which she wants is some prednisone and some oxygen. Review of Systems Narrative: Review of systems is unremarkable except as noted above Medications: Prednisone as above Albuterol inhaler DuoNebs Advair 250/50 b.i.d. Loperamide 2 mg every morning roflumilast 500 mcg daily Spiriva 1 inhalation daily [facility] Medical History (Updated 08/24/22 @ 20:04 by Hubert Mccabe MD) Excessive drinking alcohol IBS (irritable bowel syndrome) Macrocytosis without anemia Family History (Updated 08/24/22 @ 19:57 by Hubert Mccabe MD) Mother Lung cancer Social History (Updated 08/24/22 @ 19:58 by Hubert Mccabe MD) Narrative: She smoked a pack and half a day for about 24 years and quit in 2007. She drinks 3 glasses of wine per day. No recreational drug use. She lives with her , Juni, who is healthcare power of obgyn hospitalist physician. Code status is full. 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[place] Smoking Status: Never smoker Do you use any of these nicotine containing products: None How often do you have a drink containing alcohol: never How often do you have six or more drinks on one occasion: Never AUDIT-C Alcohol total score: 0 Non-prescribed substance use: denies use service: No Meds Home Medications and Allergies Home Medications Medication Instructions Recorded Confirmed Type albuterol sulfate 90 mcg/actuation inhalation 06/28/22 History aerosol inhaler amitriptyline 10 mg tablet mg 06/28/22 History fluticasone 250 mcg-salmeterol 50 inhalation 06/28/22 History mcg/dose blistr powdr for inhalation (Advair Diskus) loperamide 2 mg capsule mg 06/28/22 History roflumilast 500 mcg tablet mcg 06/28/22 History tiotropium bromide 18 mcg capsule inhalation 06/28/22 History with inhalation device (Spiriva with HandiHaler) Allergies Allergy/AdvReac Type Severity Reaction Status Date / Time Sulfa (Sulfonamide Allergy Verified 08/24/22 16:25 Antibiotics) Exam Narrative: Exam Narrative: She is alert and appears to have mild increased work of breathing. Eyes are normal. Oropharynx with small airway. Otherwise normal. Neck is supple there is no mass or adenopathy. Respirations with increase work of breathing. She has diminished breath sounds in all lung lentz. Poor air exchange in all lung lentz. Prolonged expiration. No significant wheezing noted. Cardiovascular: S1, S2, regular rate and rhythm. No murmur gallop or rub. Abdomen: Bowel sounds active. Abdomen is soft without tenderness or mass. Extremities with intact pulses and sensation. Good capillary refill. She moves all 4 extremities well. No rash. Const: Vital Signs, click to edit/add: Vital Signs - 24 hr 08/24/22 16:18 08/24/22 16:39 08/24/22 16:39 Temperature 98.4 F Pulse Rate [Pulse Oximeter] 101 H Respiratory Rate 21 Blood Pressure [Ri ght Upper Arm] 158/96 H Pulse Oximetry 86 L 95 95 Oxygen Delivery Me thod Room Air Nasal Cannula Oxygen Flow Rate 2 08/24/22 18:14 08/24/22 19:33 Temperature 98.4 F Pulse Rate [Pulse Oximeter] 99 99 Respiratory Rate 21 Blood Pressure [Ri ght Upper Arm] 158/96 H Pulse Oximetry 97 Oxygen Delivery Me thod Nasal Cannula Oxygen Flow Rate Documenting provider has reviewed patient's vital signs: yes Hospitalist - H&P: Result Labs Labs: Short CBC 08/24/22 Range/Units 17:11 WBC 9.08 (4.50-11.00) K/uL Hgb 14.0 (12.0-16.0) gm/dL Hct 42.6 (33.0-51.0) % Plt Count 186 (140-440) K/uL BMP 08/24/22 17:11 Sodium 137 Potassium 3.4 L Chloride 105 Carbon Dioxide 23 BUN 12 Creatinine 0.6 Glucose 100 Calcium 9.4 Cardiac Enzymes 08/24/22 Range/Units 17:11 Troponin I < 0.01 L (0.01-0.04) ng/mL Assessment and Plan Assessment and plan (1) Hypoxia: Problem comment: Due to COPD. Appears to need both oxygen and ongoing prednisone. Likely worse due to recent COVID and or RSV infections causing prolonged respiratory illness. Status: Acute (2) COPD (chronic obstructive pulmonary disease): Problem comment: Outpatient follow-up with pulmonology scheduled for September 01, Dr. Gerson Travis, of [facility]. Pending that visit patient will likely need oxygen and at least moderate dose of prednisone. Status: Acute (3) Excessive drinking alcohol: Problem comment: Self-reported 3 glasses of wine per day. Macrocytosis on CBC. Check LFTs. Advised to cut back. Status: Acute Plan Admit to the hospital for treatment of COPD exacerbation with steroids and oxygen. Will need plan to discharge to home on steroids in oxygen. Total time spent today is 70 minutes, 50 minutes in coordination of care and discussing with patient, and other providers ongoing evaluation management of COPD
[2022-08-24] MEDS: IPRAT-ALBUT 0.5-2.5 MG/3 ML NEB 1 NEB IH (21:03)
--- NOTE | 2022-08-24 22:43 | PC.NURSE ---
Shift [id number]- Patient arrives to unit at approximately 1930. She remains on 2-3L O2 with saturations in low-mid 90s. She is up to bathroom without oxygen once- saturations at 75% upon return. She has extension tubing for oxygen since. She is SOB with this activity, but not SOB at rest.
[2022-08-24] MEDS: NON-FORMULARY MEDICATION (Fluticasone Propion-Salmeterol [Advair Diskus] 250-50 mcg/dose b 250 EACH IH (23:27)
[2022-08-25] MEDS: IPRAT-ALBUT 0.5-2.5 MG/3 ML NEB 1 NEB IH ×3 (01:37→14:04)
[2022-08-25 03:00] VITALS: BP 135/101; PULSE 82; RESP 18; TEMP 36.5; O2SAT 92
[2022-08-25 06:35] LABS: HCO3 VBG 27 mmol/L (21-28); Hematocrit 42.8 % (33.0-51.0); Hemoglobin* 14.3 gm/dL (12.0-16.0); Immature Granulocytes Abs Auto 0.08 K/uL (0.00-0.30); Immature Granulocytes Pct Auto 1.1 %; Lymphocytes Percent Auto 8.4 % (20-44); Mean Corpuscular HGB Conc 33 gm/dL (32-36); Mean Corpuscular Hemoglobin 34 pg (26-34); Mean Corpuscular Volume 102 fL (80-100); Monocytes Percent Auto 2.5 % (0.0-11.0); PCO2 VBG 43 mmHG (40-50); PO2 VBG 50.2 mmHG (25-47); Platelet Count* 192 K/uL (140-440); RDW Coefficient of Variation % 13.4 % (11.5-15.5); Red Blood Count 4.18 m/uL (4.00-5.20); White Blood Count* 7.49 K/uL (4.50-11.00); pH VBG 7.418 (7.32-7.43)
[2022-08-25 06:36] LABS: Slide Review Reflex No
[2022-08-25 06:57] LABS: Chloride* 105 mmol/L (96-114)
[2022-08-25 06:58] LABS: Albumin* 3.9 g/dL (3.3-5.0); Potassium* 4.1 mmol/L (3.6-5.1); Sodium* 136 mmol/L (135-149)
[2022-08-25 07:00] LABS: Creatinine* 0.6 mg/dL (0.5-1.5); Est. Creatinine Clearance* 84.54; Estimated Glomerular Filt Rate 104 ml/min
[2022-08-25 07:01] LABS: Alanine Aminotransferase* 41 U/L (4-35); Alkaline Phosphatase* 83 U/L (40-150); Aspartate Amino Transferase* 24 U/L (12-35); Bilirubin Direct* 0.2 mg/dL (0.0-0.5); Bilirubin Total* 0.7 mg/dL (0.1-1.5); Blood Urea Nitrogen* 13 mg/dL (7-30); Calcium* 8.8 mg/dL (8.4-10.6); Carbon Dioxide* 26 mmol/L (20-32); Glucose* 120 mg/dL (60-115); Total Protein* 6.9 g/dL (6.0-8.3)
[2022-08-25 07:04] LABS: C Reactive Protein* 7.3 mg/dL (0.5-1.0)
--- NOTE | 2022-08-25 07:04 | PC.NURSE ---
Shift note: Pt O2 level has been greater than 90% throughout the shift on 2L oxygen. Denied pain and SOB. has been with pt tonight.Vitally stable.
[2022-08-25 08:00] VITALS: BP 137/89; PULSE 79; PULSE 82; RESP 18; TEMP 36.5; O2SAT 97
[2022-08-25] MEDS: predniSONE 20 MG TABLET 40 MG PO (08:31)
[2022-08-25] MEDS: LOPERAMIDE HCL 2 MG CAPSULE PO (08:32)
[2022-08-25] MEDS: Fluticasone Propion-Salmeterol [Advair Diskus] 250-50 mcg/dose IH (08:32)
[2022-08-25] MEDS: Roflumilast 500 mcg tablet PO (08:32)
[2022-08-25] MEDS: Tiotropium Bromide [Spiriva With Handihaler] 18 mcg capsule IH (08:33)
[2022-08-25] MEDS: AMITRIPTYLINE HCL 10 MG TABLET PO (09:56)
[2022-08-25 10:21] VITALS: O2SAT 82; O2SAT 88; O2SAT 90
[2022-08-25 11:30] VITALS: BP 134/80; PULSE 84; RESP 18; TEMP 36.6; O2SAT 94
--- NOTE | 2022-08-25 12:59 | P.DS_ITS ---
DS: Providers Provider Time Seen by Provider: 12:30 Date Seen: 08/25/22 Date of admission: 08/24/22 19:35 Primary care physician: Romel Moffett MD Admitting Clinician: Hubert Mccabe MD Consults: 08/24/22 19:28 Consult to Respiratory Therapy [CONS] Routine Comment: Reason(s) for RT Consult:: Consult Attending Physician on discharge: Marta Ohara MD Date of Discharge: 08/25/22 DS: Diagnosis Discharge Diagnosis (1) Hypoxia: Status: Acute Problem details: Due to COPD. Appears to need both oxygen and ongoing prednisone. Likely worse due to recent COVID and or RSV infections causing prolonged respiratory illness. (2) COPD (chronic obstructive pulmonary disease): Status: Acute Problem details: Outpatient follow-up with pulmonology scheduled for September 01, Dr. Gerson Travis, of [facility]. (3) Macrocytosis without anemia: Status: Acute Problem details: Possibly due to alcohol (4) Excessive drinking alcohol: Status: Acute Problem details: Self-reported 3 glasses of wine per day. Macrocytosis on CBC. Check LFTs. Advised to cut back. DS: Summary Hospital Course Hospital Course: 49-year-old female with chronic severe COPD who has an appointment with pulmonology next week but developed worsening symptoms and shortness of breath when she taper down on her prednisone. She was admitted to the hospital overnight with increased steroid dosing and nebs. She is hypoxic and requiring oxygen with activity. In discussion with the patient it sounds like this is likely not new as she has been occasionally inhaling from oxygen canisters that she gets [id number] at home. She is feeling better today and back to her usual self. She is discharged home in stable condition. Please see above for further details. PCP: Please note that follow-up outpatient imaging was recommended on CT chest, see below. Time Spent with Patient Time attestation: Total time spent providing and/or coordinating discharge services: Exam Narrative: Exam Narrative: General: No acute distress. Awake, alert, oriented x3. No pallor. No jaundice. Oropharynx: Clear. Mucous membranes moist. Cardiovascular: Regular rate and rhythm. No murmurs, gallops, or rubs. Respiratory: No respiratory distress. Able to talk in full sentences without increased work of breathing. Diminished in all lung lentz, no crackles or wheezes. Const: Vital Signs, click to edit/add: Vital Signs - 24 hr 08/24/22 16:18 08/24/22 16:39 08/24/22 16:39 Temperature 98.4 F Pulse Rate [Left] Pulse Rate [Pulse Oximeter] 101 H Respiratory Rate 21 Blood Pressure [Ri ght Arm] Blood Pressure [Ri ght Upper Arm] 158/96 H Pulse Oximetry 86 L 95 95 Oxygen Delivery Me thod Room Air Nasal Cannula Oxygen Flow Rate 2 08/24/22 18:14 08/24/22 19:33 08/24/22 20:00 Temperature 98.4 F 98.5 F Pulse Rate [Left] 94 Pulse Rate [Pulse Oximeter] 99 99 Respiratory Rate 21 18 Blood Pressure [Ri ght Arm] Blood Pressure [Ri ght Upper Arm] 158/96 H Pulse Oximetry 97 94 Oxygen Delivery Me thod Nasal Cannula Nasal Cannula Oxygen Flow Rate 3 08/24/22 20:00 08/24/22 19:45 08/24/22 23:00 Temperature 98.5 F Pulse Rate [Left] 88 Pulse Rate [Pulse Oximeter] Respiratory Rate 18 18 Blood Pressure [Ri ght Arm] 155/93 H Blood Pressure [Ri ght Upper Arm] Pulse Oximetry 94 94 Oxygen Delivery Me thod Nasal Cannula Nasal Cannula Oxygen Flow Rate 3 3 08/24/22 23:00 08/24/22 23:00 08/25/22 03:00 Temperature 98.7 F 97.7 F Pulse Rate [Left] 105 H 82 Pulse Rate [Pulse Oximeter] Respiratory Rate 18 18 18 Blood Pressure [Ri ght Arm] 136/87 135/101 H Blood Pressure [Ri ght Upper Arm] Pulse Oximetry 94 91 92 Oxygen Delivery Me thod Nasal Cannula Nasal Cannula Nasal Cannula Oxygen Flow Rate 2 2 2 Documenting provider has reviewed patient's vital signs: yes DS: Data Data Completed and Pending Completed studies during hospitalization: Ordering Physician: Radha Sow M.D. Date of Service: 08/24/22 Procedure(s): CT chest wo con Accession Number(s): [id number] cc: Romel Moffett M.D.; Radha Sow M.D.~ For Patients: As a result of the Cures Act, medical imaging exams and procedure reports are released immediately into your electronic medical record. You may view this report before your referring provider. If you have questions, please contact your health care provider. INDICATION: COPD, worsening hypoxia, recent pneumonia. TECHNIQUE: CT chest without contrast. COMPARISON: CT chest 07/21/2022. FINDINGS: Lungs and pleura: Bilateral emphysema. Resolved right middle lobe collapse. Unchanged areas of ground-glass versus mosaic attenuation of the upper lobes. No pleural effusions, pleural thickening, or pneumothorax. Heart and vasculature: Heart size is normal. Thoracic aorta and pulmonary artery are normal in caliber. Lymph nodes/mediastinum: No mediastinal, hilar, or axillary adenopathy. Chest wall: No masses. Upper abdomen: Hepatic steatosis. Otherwise, unremarkable. Bones: No acute findings or aggressive osseous lesion. Eccentric thoracic kyphosis. Old left 7th rib fracture. IMPRESSION: No acute findings within the chest. Resolved right middle lobe collapse. Unchanged areas of mosaic attenuation versus ground-glass within the upper lobes. This may be secondary to the patient`s underlying emphysema; however, the findings suggest underlying small vessel or small airways disease versus early fibrotic changes. Recommend attention on follow-up imaging. Hepatic steatosis. Please note that all CT scans at this facility use dose modulation, iterative reconstruction, and/or weight-based dosing when appropriate to reduce radiation dose to as low as reasonably achievable. Dictated by Zaki Lucas MD @ 08/24/2022 6:15:56 PM (Electronically Signed) Labs on day of discharge: Labs from last 24 hours 08/25/22 08/25/22 08/25/22 06:24 06:24 06:24 WBC 7.49 RBC 4.18 Hgb 14.3 Hct 42.8 MCV 102 H MCH 34 MCHC 33 RDW Coeff of Yue 13.4 Plt Count 192 Neut % (Auto) 88.0 H Lymph % (Auto) 8.[address] [facility] % (Auto) 2.5 Eos % (Auto) 0.0 Baso % (Auto) 0.0 Neut # (Auto) 6.60 Lymph # (Auto) 0.[address] [facility] # (Auto) 0.20 Eos # (Auto) 0.00 Baso # (Auto) 0.00 VBG pH 7.418 VBG pCO2 43 VBG pO2 50.2 H VBG HCO3 27 Sodium 136 Potassium 4.1 Chloride 105 Carbon Dioxide 26 BUN 13 Creatinine 0.6 Estimated Creat Clear 84.54 Estimated GFR 104 Glucose 120 H Lactate Calcium 8.8 Total Bilirubin 0.7 Direct Bilirubin 0.2 AST 24 ALT 41 H Alkaline Phosphatase 83 Troponin I C-Reactive Protein 7.3 H NT-Pro-B Natriuret Pep Total Protein 6.9 Albumin 3.9 Procalcitonin SARS-CoV-2 (PCR) Influenza Type A (PCR) Influenza Type B (PCR) RSV (PCR) POC Troponin I 08/24/22 08/24/22 08/24/22 17:11 17:11 17:11 WBC RBC Hgb Hct MCV MCH MCHC RDW Coeff of Yue Plt Count Neut % (Auto) Lymph % (Auto) [facility] % (Auto) Eos % (Auto) Baso % (Auto) Neut # (Auto) Lymph # (Auto) [facility] # (Auto) Eos # (Auto) Baso # (Auto) VBG pH VBG pCO2 VBG pO2 VBG HCO3 Sodium Potassium Chloride Carbon Dioxide BUN Creatinine Estimated Creat Clear Estimated GFR Glucose Lactate 0.7 Calcium Total Bilirubin Direct Bilirubin AST ALT Alkaline Phosphatase Troponin I < 0.01 L C-Reactive Protein 6.4 H NT-Pro-B Natriuret Pep Total Protein Albumin Procalcitonin 0.10 SARS-CoV-2 (PCR) Influenza Type A (PCR) Influenza Type B (PCR) RSV (PCR) POC Troponin I 0.08 H 08/24/22 08/24/22 08/24/22 17:11 17:11 16:39 WBC 9.08 RBC 4.14 Hgb 14.0 Hct 42.6 MCV 103 H MCH 34 MCHC 33 RDW Coeff of Yue 13.9 Plt Count 186 Neut % (Auto) 78.9 H Lymph % (Auto) 14.[address] [facility] % (Auto) 5.8 Eos % (Auto) 0.3 Baso % (Auto) 0.2 Neut # (Auto) 7.20 H Lymph # (Auto) 1.30 [facility] # (Auto) 0.50 Eos # (Auto) 0.03 Baso # (Auto) 0.02 VBG pH VBG pCO2 VBG pO2 VBG HCO3 Sodium 137 Potassium 3.4 L Chloride 105 Carbon Dioxide 23 BUN 12 Creatinine 0.6 Estimated Creat Clear 84.54 Estimated GFR 104 Glucose 100 Lactate Calcium 9.4 Total Bilirubin Direct Bilirubin AST ALT Alkaline Phosphatase Troponin I C-Reactive Protein NT-Pro-B Natriuret Pep 96 Total Protein Albumin Procalcitonin SARS-CoV-2 (PCR) Negative SARS-CoV-2 Influenza Type A (PCR) Negative PCR FLU A Influenza Type B (PCR) Negative PCR FLU B RSV (PCR) Negative PCR RSV POC Troponin I Discharge Plan Discharge Disposition: Home, Self-Care Date of Admission: 08/24/22 19:35 Attending Provider on Discharge: Marta Ohara Primary Care Provider: Romel Moffett Condition: Improved Anticipated Discharge Date/Time: 08/25/22 13:26 Discharge Medications: New prednisone 20 mg tablet See Rx Instructions .ROUTE .COMPLEX Qty: 14 0RF Rx Instructions: 40 mg po daily 08/26 and 08/27, then 20 mg po daily, sport intern to taper further. Continued fluticasone propion-salmeterol [Advair Diskus] 250-50 mcg/dose blister with device 1 inh INHALATION Q12H Label Comments: INHALE 1 PUFF BY MOUTH EVERY 12 HOURS loperamide 2 mg capsule 2 mg PO DAILY Label Comments: TAKE 1 CAPSULE BY MOUTH EVERY MORNING amitriptyline 10 mg tablet 10 mg PO DAILY albuterol sulfate 90 mcg/actuation HFA aerosol inhaler 1 - 2 puff INHALATION Q4H PRN Label Comments: INHALE 1 TO 2 PUFFS BY MOUTH EVERY 4 HOURS WHILE AWAKE Spiriva with HandiHaler 18 mcg capsule, w/inhalation device 1 cap INHALATION DAILY roflumilast 500 mcg tablet 500 mcg PO DAILY Discharge Orders: Discharge Order (Routine); Ordered 08/25/22 Ordered By: Marta Ohara Patient Education: COPD (Chronic Obstructive Pulmonary Disease) (DC) Additional Instructions: - Keep pulmonology appt 09/01/22. - Oxygen NC 1LPM with activity. Activity Level: Activity as Tolerated Discharge Diet: Regular Follow Up Appointments: Romel Moffett MD [Primary Care Provider] - (Wednesday or Wednesday) Forms: [employer] Info Instructions
--- NOTE | 2022-08-25 13:20 | P.HOT_ITS ---
Acute Home Oxygen Therapy Acute Home Oxygen Therapy Diagnosis for Oxygen Therapy (1) COPD (chronic obstructive pulmonary disease): Comment: Outpatient follow-up with pulmonology scheduled for September 01, Dr. Gerson Travis, of [facility]. Code(s): J44.9 - Chronic obstructive pulmonary disease, unspecified Provider Note Provider Note: Patient was admitted on 08/24/22 at 19:35 and will be discharging on 08/25/2022. Patient is desaturating with SATs of 82 % on room air with activity due to COPD. Alternative therapies have been attempted and have not been successful in maintaining the patient's saturation level above 88%. Supplemental O2 is required. This patient is mobile within the home and requires portability.
--- NOTE | 2022-08-25 15:02 | PC.SOCIAL ---
Pt. will need to discharge with home oxygen. A referral for home oxygen was sent to [facility] and pt. was discharge with their O2 tank.
--- NOTE | 2022-08-25 15:27 | PC.NURSE ---
AT BEGINNING OF SHIFT, PATIENT'S O2 SATS 96-98%2L O2 PER NC. WEANED TO 1L O2 AND SATS 95%. ATTEMPTED TO WEAN TO ROOM AIR BUT O2 SATS DECREASED TO 86-87%RA. REPORTS SOB WITH EXERTION. PLAN TO DC THIS EVENING WITH HOME O2 AND .
[2022-08-25 15:35] VITALS: BP 149/96; PULSE 84; RESP 18; TEMP 36.7; O2SAT 94
--- NOTE | 2022-08-25 16:20 | PC.NURSE ---
Discharge 1615- Patient is on 1L O2. She is given discharge instructions verbally and in print. No IV in place. She is ambulatory. She leaves unit with and all belongings via wheelchair.
== END 2022-08-25 16:15 | disposition home or self-care (01) ==
LOC: ED 18:17 → MEDSURG 19:36
PROVIDERS: Admitting Provider Family Medicine; Emergency Provider Family Medicine; PCP Surgery; Visit Provider Family Medicine
DX: J44.1 Chronic obstructive pulmonary disease with (acute) exacerbation (principal); R09.02 Hypoxemia; Z87.09 Personal history of other diseases of the respiratory system; Z86.16 Personal history of COVID-19; Z87.01 Personal history of pneumonia (recurrent); D75.89 Other specified diseases of blood and blood-forming organs; F10.10 Alcohol abuse, uncomplicated; R06.02 Shortness of breath; Z87.891 Personal history of nicotine dependence; R79.89 Other specified abnormal findings of blood chemistry; K76.0 Fatty (change of) liver, not elsewhere classified
CPT/HCPCS: 36415; 71250; 80048; 80076; 82803; 83605; 83880; 84145; 84484; 85025; 86140; 87502; 87634; 87635; 93005; 94640; 94761; 99284; 99285; A9270; G0378; J7512

== ENCOUNTER 2025-06-11 10:44 | Inpatient (IN) | payer BC, SELFPAY ==
[2025-06-11] VITALS (17 sets, daily range): BP systolic 129–167; BP diastolic 69–96; PULSE 74–93; RESP 16–55; TEMP 36.4–36.8; O2SAT 73–94; BMI 27.8; BMI 27.6; BMI 27.7
--- OUTSIDE RECORDS SUMMARY | 2025-06-11 10:53 | XMS_ITS | Clinical Summary ---
Author Organization [facility] Address [address] [place] [address] Care Team Providers Care Infection Prevention Coordinator Name Role Phone Romel Moffett MD Primary Care Provider [phone] Allergies Active Allergy Reactions Criticality Noted Date Comments Amitriptyline Agitation High 03/07/2025 Depression and agitation Aspartame Headache 08/18/2021 Amoxicillin-Pot Clavulanate Nausea And Vomiting 06/01/2025 Egg 2010 Gi Gluten Diarrhea 05/16/2015 Hepatitis B Virus Vaccine GI Upset,Headache 02/11/2012 Influenza Vacc,Tri 2007 (Live) Diarrhea,Fever,Vomi ting 09/16/2013 Milk Containing Products (Dairy) Diarrhea 04/06/2016 Sulfa (Sulfonamide Antibiotics) *Unknown - Childhood Rxn 08/24/2022 Tetanus And Diphtheria Toxoids, Adsorbed, Adult Fever,GI Bleeding,Headache 03/13/2013 Patient states that she was not able use her arm for two days, sore and limited movement, numbness and muscle seem to spasm. Medications Mucus Clearing Device deviIndications: Chronic obstructive pulmonary disease, unspecified COPD type (HC) As directed. High frequency 4 Active albuterol HFA (PRO-AIR; VENTOLIN; PROVENTIL) 90 mcg/actuation inhalerIndicatio ns:Chronic obstructive pulmonary disease, unspecified COPD type (HC) INHALE 1 TO 2 PUFFS BY MOUTH EVERY 4 HOURS WHILE AWAKE 25.2 g 2 5 Active fluticasone propion-salmeter oL (Advair Diskus) 500-50 mcg/Dose diskus inhalerIndicatio ns:Chronic obstructive pulmonary disease, unspecified COPD type (HC) Inhale 1 Puff by mouth every 12 hours. 180 Each 3 5 Active roflumilast 500 mcg tabletIndication s:Chronic obstructive pulmonary disease, unspecified COPD type (HC) TAKE 1 TABLET BY MOUTH DAILY 90 Tablet 3 5 Active tiotropium (spiriva) 18 mcg inhalation capsuleIndicatio ns:Chronic obstructive pulmonary disease, unspecified COPD type (HC) Inhale 1 Capsule (18 mcg) by mouth once daily. INHALE 1 CAPSULE BY MOUTH ONCE DAILY. USING HANDIHALER, VARELA CAPSULE, THEN BREATHE IN THE PWDR. INHALE TWICE FROM SAME CAPSULE FOR FULL DOSE 30 Capsule 11 5 Active loperamide (IMODIUM) 2 mg capsuleIndicatio ns:Irritable bowel syndrome with diarrhea TAKE 1 CAPSULE BY MOUTH TWICE DAILY NEEDED FOR DIARRHEA 60 Capsule 11 5 Active amoxicillin-clav ulanate (AUGMENTIN) 875-125 mg tabletIndication s:Dental infection Take 1 Tablet by mouth every 12 hours for 7 days. 14 Tablet 5 05/13/20 25 clindamycin (CLEOCIN) 300 mg capsuleIndicatio ns:Tooth infection Take 1 Capsule (300 mg) by mouth three times daily for 7 days. 21 Capsule 5 06/08/20 25 Active Problems Problem Noted Date Diagnosed Date Chronic respiratory failure with hypoxia 024 Hypoxia 08/28/2022 Macrocytosis without anemia 08/28/2022 Excessive drinking alcohol 08/28/2022 COPD (chronic obstructive pulmonary disease) Encounters Date Type Department Care Team Description 06/11/2025 9:30 AM RUBBISH COLLECTOR Office Visit [facility] [address] [place] [address] Romel Moffett MD Shortness Of Breath (Started last /Dropping into the 50's ) 06/10/2025 Travel 06/05/2025 Telephone [facility] [address] [place] [address] Romel Moffett MD Medication Management (Medical Recommendations) 06/01/2025 10:15 AM RUBBISH COLLECTOR Office Visit [facility] [address] [place] [address] Tammie Carvalho PA Tooth Ache (bilateral tooth pain on lower jaw. Left side more bothersome and throbbing ( was seen in last month), did not tolerate Augmentin well (n/v)) 06/01/2025 Travel 05/31/2025 Telephone [facility] [address] [place] [address] Romel Moffett MD New Med Request (ANTIBIOTIC) 05/06/2025 11:25 AM CDT Telemedicine [facility] [place] [address] Anusha Garcia NP Telehealth (Need antibiotics for a tooth infection, very painful/No vitals taken -virtual visit./) 05/06/2025 Travel from Last 3 Months Immunizations Immunization Administration Dates Next Due Hepatitis B (Adult) 01/25/2003 Influenza, IIV3 (Age >=3 years) 08/10/2013 Td (Age >=7 Years) 01/25/2003 Td, Preservative Free (age > = 7 Years) 02/10/2013 Tuberculin (PPD) 02/08/2013, 2,01/26/2012,2010 Family History Medical History Relation Name Comments Cancer Mother Lung Relation Name Status Comments Mother Social History Tobacco Use Types Packs/Day Years Used Date Smoking Tobacco: Former Cigarettes 1.5 24 0 07/19/1983 - 07/19/2007 Smokeless Tobacco: Never Tobacco Cessation:Counseling Given: Yes Comments:smoked 1-2 pks a day Alcohol Use Standard Drinks/Week Comments Yes 14 (1 standard drink = 0.6 oz pure alcohol) couple glasses of wine a night PHQ-2 Answer Date Recorded PHQ-2 TOTAL SCORE 0 03/07/2025 Social Connections Answer Date Recorded Do you often feel lonely or isolated from those around you? 0 03/07/2025 Alcohol Use Answer Date Recorded How often do you have a drink containing alcohol ? 4 06/11/2025 How many drinks containing a lcohol do you have on a typical day when you are drinking? 0 06/11/2025 How often do you have five or more drinks on one occasion? 0 06/11/2025 Financial Resource Strain Answer Date R ecorded Difficulty of Paying Living Expenses 3 03/07/2025 Difficulty of Paying Living Expenses Not on file 03/07/2025 Food Insecurity Answer Date Recorded Do you worry your food will run out before you are able to buy more? 1 03/07/2025 Transportation Needs Answer Date Record ed Does lack of transportation keep you from medica l appointments? 1 03/07/2025 Does lack of transportation keep you from work, meetings or getting things that you need? 1 03/07/2025 Housing Stability Answer Date Recorded What is your housing situation today? 1 03/07/2025 Utilities Answer Date Recorded Do you have trouble paying f or utilities (for example, heat, electricity, water, phone)? 1 03/07/2025 Comments No Sex and Gender Information Value Date Recorded Sex Assigned at Not on file Legal Sex Female 6:22 AM RUBBISH COLLECTOR Gender Identity Not on file Sexual Orientation Not on file Obstetrics History Last Filed Vital Signs Vital Sign Reading Time Taken Comments Blood Pressure 143/83 06/11/2025 9:46 AM RUBBISH COLLECTOR Pulse 93 06/11/2025 9:46 AM RUBBISH COLLECTOR Temperature 36.7 C (98.1 F) 06/01/2025 10:12 AM RUBBISH COLLECTOR Respiratory Rate 16 03/25/2023 3:31 PM CDT Oxygen Saturation 83% 06/11/2025 9:44 AM RUBBISH COLLECTOR Inhaled Oxygen Concentration - - Weight 72.8 kg (160 lb 9.6 oz) 06/11/2025 9:44 A M RUBBISH COLLECTOR Height 160 cm (5' 3) 03/07/2025 8:42 AM CDT Body Mass Index 28.45 03/07/2025 8:42 AM CDT Plan of Treatment Upcoming Encounters Date Type Department Care Team (Late st Contact Info) Description 08/08/2025 3:30 PM RUBBISH COLLECTOR Office Visit [facility] [address] [place] [address] Mitul Gonzalez MD [address] [place] [address] Health Maintenance Due Date Last Done Comments Pneumococcal series for age 50+ (1 of 2 - PCV) 1983 Pap test for age 21-65 1985 Hepatitis B series for 19+ ( 2 of 3 - 19+ 3-dose series) 02/22/2003 01/25/2003 Colonoscopy through age 75 2009 Mammogram for age 45-75 2009 RSV vaccine for adults or (1 - Risk 50-74 years 1-dose series) 2014 Zoster (shingles) series for age 50+ (1 of 2) [address] (for lung CA) ag e 50-80 10/25/2024 10/26/2023, 08/24/2022, 02/07/2015 BMI (ht and wt on same day) for age 18+ 03/07/2026 03/07/2025, 09/02/2023, 03/25/2023, Additional history exists Depression screening for age 12+ 03/07/2026 03/07/2025, 12/31/2022, 03/21/2020, Additional history exists Lipids for age 45-75 09/27/2028 09/28/2023, 03/27/2020, 02/07/2015 HIV for age 15-65 Completed 12/02/2015 Hepatitis C screening for ag e 18-79 Completed 02/22/2024, 12/02/2015 Procedures Procedure Name Priority Date/Time Associated Diagnosis Comments ANTI HCV Routine 02/22/2024 3:26 PM CDT Elevated liver enzymes CT CHEST WO Routine 10/26/2023 3:21 PM CDT Chronic obstructive pulmonary disease, unspecified COPD type (HC) LIPID PANEL Routine 09/28/2023 5:11 PM CDT Hyperlipidemia, unspecified hyperlipidemia type ANTI HIV 1/2 Routine 12/02/2015 2:58 PM CDT Needle stick injury of finger of right hand, initial encounter from Last 3 Months or Most Recently Relevant to Health Maintenance Results * ANTI HCV (02/22/2024 3:26 PM CDT) HEPATITIS C ANTIBODY Non-Reacti ve Non-React amarjit 02/23/2024 2:16 PM CDT [facility] Comment:Please note, per www .CDC.gov: If a patient is known to be at high risk of HCV infection, or is symptomatic, and the physician's suspicion of HCV infection is high, HCV RNA testing is often employed and is of diagnostic value, even after an initial negative anti-HCV test result. Blood BLOOD SPECIMEN / Unknown Venipuncture / Unknown 02/22/2024 3:26 PM CDT 02/22/2024 3:27 PM CDT us Romel Moffett MD SEND OUTS Final Resu lt [facility] [address] [place] [address], [place] * CT CHEST WO (10/26/2023 3:21 PM CDT) Anatomical Region Laterality Modality CHEST, THORAX, HEART Computed To mography 10/26/2023 3:21 PM CDT Impressions 10/26/2023 10:51 PM CDT 1. Moderate emphysema. 2. Mosaic attenuation of the lungs suggesting small airway disease. 3. Severe hepatic steatosis. Narrative 10/26/2023 10:51 PM CDT For Patients: As a result of the Cures Act, medical imaging exams and procedure reports are released immediately into your electronic medical record. You may view this report before your referring provider. If you have questions, please contact your health care provider. EXAM: CT CHEST WO LOCATION: [facility] MEDICAL IMAGING DATE: 10/26/2023 INDICATION: Chronic Obstructive Pulmonary Disease, Unspecified Copd Type (hc) COMPARISON: 02/07/2015 TECHNIQUE: CT chest without IV contrast. Multiplanar reformats were obtained. Dose reduction techniques were used. CONTRAST: None. FINDINGS: LUNGS AND PLEURA: Moderate emphysema. No focal consolidation or effusion. Mosaic attenuation of the lungs predominantly within the upper lobes suggesting small airway disease. MEDIASTINUM/AXILLAE: Heart is normal in size. No mediastinal, axillary, or hilar adenopathy. CORONARY ARTERY CALCIFICATION: None. UPPER ABDOMEN: Severe hepatic steatosis. MUSCULOSKELETAL: Minimal degenerative changes of the spine. Procedure Note Toño Landrum MD - 10/26/2023 For Patients: As a result of the 21st Century Cures Act, medical imagingexams and procedure reports are released immediately into your electronicmedical record. You may view this report before your referring provider.If you have questions, please contact your health care provider. EXAM: CT CHEST WO LOCATION: [facility] MEDICAL IMAGING DATE: 10/26/2023 INDICATION: Chronic Obstructive Pulmonary Disease, Unspecified Copd Type(hc) COMPARISON: 02/07/2015 TECHNIQUE: CT chest without IV contrast. Multiplanar reformats wereobtained. Dose reduction techniques were used. CONTRAST: None. FINDINGS: LUNGS AND PLEURA: Moderate emphysema. No focal consolidation or effusion.Mosaic attenuation of the lungs predominantly within the upper lobessuggesting small airway disease. MEDIASTINUM/AXILLAE: Heart is normal in size. No mediastinal, axillary, orhilar adenopathy. CORONARY ARTERY CALCIFICATION: None. UPPER ABDOMEN: Severe hepatic steatosis. MUSCULOSKELETAL: Minimal degenerative changes of the spine. IMPRESSION: 1. Moderate emphysema. 2. Mosaic attenuation of the lungs suggesting small airway disease. 3. Severe hepatic steatosis. us Mitul Gonzalez MD CT Final Res ult * (ABNORMAL) LIPID PANEL (09/28/2023 5:11 PM CDT) CHOLESTEROL,TOTAL 218(H) 100 - 199 mg/dL 09/29/2023 5:18 PM CDT [facility] Comment: Cholesterol, Total Reference Ranges Desirable <200 mg/dL Borderline 200-239 mg/dL High >=240 mg/dL TRIGLYCERIDES 73 <150 mg/dL 09/29/2023 5:18 PM CDT [facility] HDL CHOLESTEROL 95 >40 mg/dL 5:18 PM CDT [facility] NON-HDL CHOLESTEROL 123 <145 mg/dl 09/29/2023 5:18 PM CDT [facility] CHOL/HDL RATIO 2.29 <4.50 09/29/2023 5:18 PM CDT [facility] LDL CHOLESTEROL 108 <=130 mg/dL 09/29/2023 5:18 PM CDT [facility] VLDL CHOLESTEROL 15 <=30 mg/dL 09/29/2023 5:18 PM CDT [facility] PROVIDER ORDERED STATUS RANDOM 09/29/2023 5:18 PM CDT [facility] Blood BLOOD SPECIMEN / Unknown Venipuncture / Unknown 09/28/2023 5:11 PM CDT 09/28/2023 5:11 PM CDT us Romel Moffett MD CHEMISTRY Final Resu lt [facility] [address] [place] [address], [place] * ANTI HIV 1/2 (12/02/2015 2:58 PM CDT) HIV-1/HIV-2 ANTIBODY Non-Reacti ve Non-Reacti ve 12/02/2015 9:53 PM CDT [facility] TRA [facility] Blood specimen (specimen) BLOOD SPECIMEN / Unknown Venipuncture / Unknown 12/02/2015 2:58 PM CDT 12/02/2015 2:58 PM CDT Narrative [facility] - 12/02/2015 9:53 PM CDT HIV-1 p24 and HIV-1/HIV-2 Ab not detected us Raymond Puentes DO SEND OUTS Final Result [facility] [address] [place] [address], [place] from Last 3 Months or Most Recently Relevant to Health Maintenance Insurance [employer] [phone] [place] [address] Care Teams Infection Prevention Coordinator Relationship Specialty Start Date End Date Romel Moffett MD [address] [place] [address] PCP - General Family Practice 09/24/14
--- NOTE | 2025-06-11 11:09 | CRLHL7_ITS ---
For Patients: As a result of the Century Cures Act, medical imaging exams and procedure reports are released immediately into your electronic medical record. You may view this report before your referring provider. If you have questions, please contact your health care provider. Indication: Shortness of breath Comparison: Two-view chest July 21, 2022 Technique: PA and lateral views of the chest Findings: There is hyperinflation and chronic interstitial change with minimal subtle airspace opacity in the inferior right upper lobe. Small basilar effusions are appreciated. There is no pneumothorax. The cardiac silhouette is mildly prominent. The bony thorax is grossly intact. Impression: Hyperinflation and chronic interstitial changes with increased airspace opacity in the peripheral right upper lobe which may represent developing infiltrates. Dictated by Sebastian Callaway MD @ 06/11/2025 12:03:28 PM (Electronically Signed)
[2025-06-11] MEDS: METHYLPREDNISOLONE SOD SUCC 62.5 MG/ML (125) 125 MG IVP (11:22)
[2025-06-11] MEDS: IPRAT-ALBUT 0.5-2.5 MG/3 ML NEB 1 NEB IH ×3 (11:22→20:15)
--- NOTE | 2025-06-11 11:27 | ED.GENADULT ---
HPI - General Adult General Chief complaint: Shortness of Breath/Dyspnea Stated complaint: Low oxygen 83%, sent by primary dr. Time Seen by Provider: 06/11/25 11:02 Source: patient Mode of arrival: ambulatory Limitations: no limitations History of Present Illness HPI narrative: 59-year-old female with a history of COPD presenting today with shortness of breath. Patient states that she has been feeling short of breath for 4 days now. States that her oxygen saturations dropped into the 50s with physical activity and has been sitting around the 70s otherwise. She has been coughing a little bit, nonproductive. She denies any fevers or chills. No nausea or vomiting. She complains of a decreased appetite. Patient was recently fighting with a oral infection, just finished oral clindamycin with resolutions of those symptoms. Patient is not oxygen dependent, does not have access to oxygen at home at this time. Denies smoking. Drinks regularly, last alcohol use was last night. Patient states she had had 1 glass of wine. She denies any history of withdrawals. Related Data Home Medications ?Medication ?Instructions ?Recorded ?Confirmed albuterol sulfate 90 mcg/actuation 1 - 2 puff inhalation Q4H PRN 06/28/22 08/25/22 aerosol inhaler fluticasone 250 mcg-salmeterol 50 1 inh inhalation Q12H 06/28/22 08/25/22 mcg/dose blistr powdr for inhalation (Advair Diskus) loperamide 2 mg capsule 2 mg PO DAILY 06/28/22 08/25/22 roflumilast 500 mcg tablet 500 mcg PO DAILY 06/28/22 08/25/22 tiotropium bromide 18 mcg capsule 1 cap inhalation DAILY 06/28/22 08/25/22 with inhalation device (Spiriva with HandiHaler) Previous Rx's ?Medication ?Instructions ?Recorded prednisone 20 mg tablet See Rx Instructions .Route 08/25/22 .COMPLEX #14 tabs Allergies Allergy/AdvReac Type Severity Reaction Status Date / Time amitriptyline Allergy Unknown Verified 06/11/25 10:55 amoxicillin (From Augmentin) Allergy Unknown Verified 06/11/25 10:55 clavulanic acid (From Allergy Unknown Verified 06/11/25 10:55 Augmentin) Sulfa (Sulfonamide Allergy Verified 08/24/22 16:25 Antibiotics) dairy Allergy Uncoded 08/24/22 20:11 eggs Allergy Uncoded 08/24/22 20:11 flu vaccine Allergy Uncoded 08/24/22 20:11 gluten Allergy Uncoded 08/24/22 20:11 hepatitis b vaccine Allergy Uncoded 08/24/22 20:11 tdap Allergy Uncoded 08/24/22 20:11 Review of Systems Status of ROS: Reports: 10 or more systems reviewed and unremarkable except as noted in History and below PFSH [facility] Medical History Excessive drinking alcohol ?F10.10 - Alcohol abuse, uncomplicated (ICD-10) IBS (irritable bowel syndrome) ?K58.9 - Irritable bowel syndrome without diarrhea (ICD-10) Macrocytosis without anemia ?D75.89 - Other specified diseases of blood and blood-forming organs (ICD-10) Family History Mother Lung cancer Social History Narrative: She smoked a pack and half a day for about 24 years and quit in 2007. She drinks 3 glasses of wine per day. No recreational drug use. She lives with her , Juni, who is healthcare power of deputy commonwealth's attorney. Code status is full. 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 Alert and oriented. Answers questions appropriately. Mood and affect are appropriate. Thoughts are goal oriented and rational. No tangential or magical thinking noted. Has a hard time finishing a sentence without needing to catch her breath. HEENT: Normocephalic atraumatic. Pupils are equally round reactive to light. Extraocular muscles are intact. Conjunctivae are moist without any icterus noted. Slightly dry mucous membranes. Posterior pharynx is normal. Cardiovascular: Heart is regular rate and rhythm S1 and S2 are present without any murmurs. Lungs: Markedly decreased breath sounds bilaterally. Extremities: Bilateral lower extremities show trace edema. Skin: Well perfused without any obvious rashes. Const: Vital Signs, click to edit/add: Vital Signs - 24 hr 06/11/25 10:51 06/11/25 11:28 Temperature 97.5 F L Pulse Rate [Pulse Oximeter] 93 Respiratory Rate 28 H Blood Pressure [Ri ght Upper Arm] 158/96 H Pulse Oximetry 73 L 91 Oxygen Delivery Me thod Room Air Course Course ED Course: Patient was placed on oxygen. Her oxygen saturation does go up to 89-90% on 2 L nasal cannula. IV established. Patient is treated with DuoNeb and Solu-Medrol. EKG, read by me, shows normal sinus rhythm with a pulse of 75. Normal MS, QRS and QTC intervals. Chest x-ray done shows increasing right-sided peripheral opacities concerning for new infiltrates. CBC unremarkable. Unable to get chemistries at this time as the analyzer was down. Triple swab negative. Vital Signs Vital signs: Initial Vital Signs Temperature 97.5 F L 06/11/25 10:51 Temperature Source Temporal Artery Scan 06/11/25 10:51 Pulse Rate 93 06/11/25 10:51 Respiratory Rate 28 H 06/11/25 10:51 Blood Pressure 158/96 H 06/11/25 10:51 Blood Pressure Mean 116 H 06/11/25 10:51 Blood Pressure Position Sitting 06/11/25 10:51 Pulse Oximetry 73 L 06/11/25 10:51 Oxygen Delivery Method Room Air 06/11/25 10:51 Vital Signs Temperature 97.5 F L 06/11/25 10:51 Pulse Rate 93 06/11/25 10:51 Respiratory Rate 28 H 06/11/25 10:51 Blood Pressure 158/96 H 06/11/25 10:51 Pulse Oximetry 73 L 06/11/25 10:51 Oxygen Delivery Method Room Air 06/11/25 10:51 Temperature 97.5 F L 06/11/25 10:51 Pulse Rate 93 06/11/25 10:51 Respiratory Rate 28 H 06/11/25 10:51 Blood Pressure 158/96 H 06/11/25 10:51 Pulse Oximetry 91 06/11/25 11:28 Oxygen Delivery Method Room Air 06/11/25 10:51 Medications Administered Medications: Discontinued Medications Generic Name Dose Route Start Last Admin Trade Name Freq PRN Reason Stop Dose Admin Albuterol/Ipratropium 1 neb 06/11/25 11:09 06/11/25 11:22 Iprat-Albut 0.5-2.5 Mg/3 Ml Neb IH 06/11/25 11:10 1 neb ONCE ONE Administration Methylprednisolone Sodium Succinate 125 mg 06/11/25 11:09 06/11/25 11:22 Methylprednisolone Sod Succ 62.5 Mg/Ml (125) IVP 06/11/25 11:10 125 mg ONCE ONE Administration Medical Decision Making MDM Narrative Medical decision making narrative: 59-year-old female COPD exacerbation, pneumonia, acute hypoxic respiratory failure. Blood cultures pending. Will start azithromycin Rocephin. Patient will be admitted for further management. Lab Data Lab results reviewed: Yes I reviewed the patient's lab results Labs: Lab Results 06/11/25 06/11/25 Range/Units 10:55 11:22 WBC 7.24 (4.50-11.00) K/uL RBC 4.51 (4.00-5.20) m/uL Hgb 14.3 (12.0-16.0) gm/dL Hct 44.5 (33.0-51.0) % MCV 99 (80-100) fL MCH 32 (26-34) pg MCHC 32 (32-36) gm/dL RDW Coeff of Yue 13.9 (11.5-15.5) % Plt Count 222 (140-440) K/uL Neut % (Auto) 72.2 H (42.0-72.0) % Lymph % (Auto) 21.3 (20-44) % Hamblen % (Auto) 4.6 (0.0-11.0) % Eos % (Auto) 1.5 (0.0-7.0) % Baso % (Auto) 0.3 (0.0-3.0) % Neut # (Auto) 5.20 (1.7-7.0) K/uL Lymph # (Auto) 1.54 (0.90-2.90) K/uL Hamblen # (Auto) 0.30 (0.00-0.90) K/UL Eos # (Auto) 0.11 (0.00-0.50) K/uL Baso # (Auto) 0.02 (0.00-0.30) K/uL Abs Immat Gran (auto) 0.01 (0.00-0.30) K/uL Imm/Tot Granulo (auto) 0.1 % SARS-CoV-2 (PCR) Negative SARS-CoV-2 (Negative) Influenza Type A (PCR) Negative PCR FLU A (Negative) Influenza Type B (PCR) Negative PCR FLU B (Negative) RSV (PCR) Negative PCR RSV (Negative) Imaging Data Chest x-ray: Attestation: I have reviewed the pertinent imaging results. Radiologist's impression: Comparison: Two-view chest July 21, 2022 Technique: PA and lateral views of the chest Findings: There is hyperinflation and chronic interstitial change with minimal subtle airspace opacity in the inferior right upper lobe. Small basilar effusions are appreciated. There is no pneumothorax. The cardiac silhouette is mildly prominent. The bony thorax is grossly intact. Impression: Hyperinflation and chronic interstitial changes with increased airspace opacity in the peripheral right upper lobe which may represent developing infiltrates. ECG Data Attestation: I personally reviewed and interpreted this ECG as follows: Discharge Plan Discharge Clinical Impression: Acute hypoxic respiratory failure, Pneumonia Patient Disposition: Admitted As Inpatient Condition: Stable
[2025-06-11 11:43] LABS: Hematocrit* 44.5 % (33.0-51.0); Hemoglobin* 14.3 gm/dL (12.0-16.0); Immature Granulocytes Abs Auto 0.01 K/uL (0.00-0.30); Immature Granulocytes Pct Auto 0.1 %; Lymphocytes Absolute Auto 1.54 K/uL (0.90-2.90); Mean Corpuscular HGB Conc 32 gm/dL (32-36); Mean Corpuscular Hemoglobin 32 pg (26-34); Mean Corpuscular Volume 99 fL (80-100); RDW Coefficient of Variation % 13.9 % (11.5-15.5); Red Blood Count* 4.51 m/uL (4.00-5.20); White Blood Count* 7.24 K/uL (4.50-11.00)
[2025-06-11 11:45] LABS: PCR FLU A Negative PCR FLU A (Negative); PCR FLU B Negative PCR FLU B (Negative); PCR RSV Negative PCR RSV (Negative); SARS PCR* Negative SARS-CoV-2 (Negative)
[2025-06-11 11:47] LABS: Slide Review Reflex No
[2025-06-11 12:14] LABS: Chloride* 102 mmol/L (96-114); Sodium* 139 mmol/L (135-149)
[2025-06-11 12:15] LABS: Potassium* 3.7 mmol/L (3.6-5.1)
[2025-06-11 12:17] LABS: Anion Gap 13 mEq/L (7-15); Blood Urea Nitrogen* 13 mg/dL (7-30); Carbon Dioxide* 24 mmol/L (20-32); Creatinine* 0.7 mg/dL (0.5-1.5); Est. Creatinine Clearance* 70.70; Estimated Glomerular Filt Rate 99 ml/min
[2025-06-11 12:18] LABS: Calcium* 9.2 mg/dL (8.4-10.6); Glucose* 103 mg/dL (60-115)
[2025-06-11 12:34] LABS: NT Pro B Type NatriureticPept* 293 pg/mL (See Note)
[2025-06-11 12:35] LABS: Procalcitonin* 0.06 ng/mL (<0.50)
[2025-06-11] MEDS: cefTRIAXone 2 GM in 0.9 % SODIUM CHLORIDE Mini-bag 100 ML IVPB (12:42)
[2025-06-11] MEDS: AZITHROMYCIN 500 MG in 0.9 % SODIUM CHLORIDE 250 ml 250 ML 255 MG IVPB (13:32)
--- NOTE | 2025-06-11 18:29 | P.IMHP_ITS ---
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 Gonzalez, laborer wrecking and salvaging Status: Acute Plan Admit for treatment of acute on chronic hypoxemic respiratory failure and COPD exacerbation. ProBNP is unremarkable, I think pedal edema is secondary to lymphedema rather than cardiac. Notably procalcitonin is also unremarkable, and patient's white count is within normal limits, pneumonia is less likely, but will treat with antibiotics for now since they will also help with COPD exacerba tion. Consider short course of antibiotics. Start schedule DuoNebs, p.r.n. albuterol nebs, supplemental oxygen, keeping O2 sats between 88 and 90%, avoiding higher than that to prevent CO2 retention, oral prednisone 60 mg daily, ceftriaxone and azithromycin, continue home loperamide in roflumilast. Also consult respiratory therapy. Suspect patient will need to resume home oxygen on discharge. VTE prophylaxis with SCDs and low-dose enoxaparin. Hospitalist- H&P: HPI History of Present Illness Date Seen: 06/11/25 Chief complaint: Low oxygen 83%, sent by primary dr. Narrative: Carmela Gomez is a 59 year old female with a history of COPD and chronic respiratory failure with hypoxia for which she used to be on oxygen but self discontinued due to cost who presented from the clinic to the ER today for concerns of hypoxia. Carmela's is here with her today. I saw her in the hospital 2 years ago when I discharged her with oxygen for chronic hypoxia due to COPD. She tells me that she used oxygen for a while, but then it became too expensive even with insurance and she stopped using it. About 6 months ago she noticed dyspnea walking short distances, even walking down the leong at [employer] she works. She no longer goes down the leong to get medications and has someone else do it for her. She uses a home pulse oximeter regularly and notes that her oxygen saturations often go down into the 70s or even lower when she ambulates. She recently ordered an oxygen concentrator for home to try to get back on oxygen, but it has yet to arrive. She last saw Dr. Gonzalez from pulmonology 09/02/2023. They discussed endobronchial valves the purpose of lung volume reduction at that visit. In the last few days he has not had any upper respiratory or viral symptoms, but has noticed that her oxygen saturations have been lower, sometimes into the 50s with ambulation and she is significantly more short of breath. This morning she was so short of breath just getting out of bed and down the leong that she could not get downstairs to get her medications. She called her and he was able to come home from work early, he works the inventory control clerk, and help her get her medications and then brought her to her previously scheduled appointment with Dr. Mofftet. Dr. Moffett also noted that she had significant hypoxia and sent her to the emergency department for further investigation. She denies chest pain, fever, cough, or leg pain. She denies ankle edema, but did note that her shoes felt tighter today. Review of Systems Status of ROS: Reports: 10 or more systems reviewed and unremarkable except as noted in History and below Medical Decision Making Medical Decision Making Code Status: FULL Has patient completed a Health Care Directive: No During This Stay, Who Would You Like To Make Decisions For You In The Event You Are Unable To Make Them For Yourself?: Juni [facility] Medical History (Updated 06/11/25 @ 18:49 by Marta Ohara MD) Chronic respiratory failure with hypoxia ?J96.11 - Chronic respiratory failure with hypoxia (ICD-10) Hypoxia ?R09.02 - Hypoxemia (ICD-10) Excessive drinking alcohol ?F10.10 - Alcohol abuse, uncomplicated (ICD-10) IBS (irritable bowel syndrome) ?K58.9 - Irritable bowel syndrome without diarrhea (ICD-10) Family History Mother Lung cancer Social History Narrative: She smoked a pack and half a day for about 24 years and quit in 2007. She drinks 1 glass of wine per day. 1 CBD gummy at bedtime. No recreational drug use. She lives with her , Juni, who is healthcare power of commonwealth attorney. Code status is full. 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 What is your current living situation?: I presently have a place to live Problems where you live: no known problems In the past 12 months, utilities in danger of being shut off: no In past 12 months, lack of transportation kept you from medical appts, meetings, work, or getting things needed for daily living: no In the past 12 mos, have been you worried that your food would run out before you had money to buy more?: never true In the past 12 mos, the food you bought just didn't last and you didn't have money to buy more?: never true Smoking Status: Former smoker Do you use any of these nicotine containing products: None How often do you have six or more drinks on one occasion: Never AUDIT-C Alcohol total score: 0 Non-prescribed substance use: denies use Caffeine: No How often does anyone, including family, friends and others, physically hurt you : never How often does anyone, including family, friends and others, insult or talk down to you: never How often does anyone, including family, friends and others, threaten you with harm: never How often does anyone, including family, friends and others, scream or curse at you: never service: No Meds Home Medications and Allergies Home Medications ?Medication ?Instructions ?Recorded ?Confirmed ?Type loperamide 2 mg capsule 2 mg PO BID 06/28/22 5 History roflumilast 500 mcg tablet 500 mcg PO DAILY 06/28/22 1 08/11/24 History tiotropium bromide 18 mcg capsule 1 cap inhalation SKY LY 06/28/22 06/11/25 History with inhalation device (Spiriva with HandiHaler) albuterol sulfate 90 mcg/actuation 1 - 2 puff inhalati on .PRN PRN 06/11/25 06/11/25 History aerosol inhaler fluticasone 500 mcg-salmeterol 50 1 ea inhalation Q12H 06/11/25 06/11/25 History mcg/dose blistr powdr for inhalation Allergies Allergy/AdvReac Type Severity Reaction Status Date / Time amitriptyline Allergy Unknown Verified 06/11/25 10:55 amoxicillin (From Augmentin) Allergy Unknown Verified 06/11/25 10:55 clavulanic acid (From Allergy Unknown Verified 06/11/25 10:55 Augmentin) Sulfa (Sulfonamide Allergy Verified 08/24/22 16:25 Antibiotics) dairy Allergy Uncoded 08/24/22 20:11 eggs Allergy Uncoded 08/24/22 20:11 flu vaccine Allergy Uncoded 08/24/22 20:11 gluten Allergy Uncoded 08/24/22 20:11 hepatitis b vaccine Allergy Uncoded 08/24/22 20:11 tdap Allergy Uncoded 08/24/22 20:11 Exam Narrative: Exam Narrative: General: No acute distress. Awake alert oriented x3. HEENT: Normocephalic atraumatic, pupils equally round and reactive to light and accommodation. Oropharynx clear, poor dentition, missing multiple teeth on 1 side. Mucous membranes are moist. No cervical lymphadenopathy, thyromegaly or carotid bruits. No JVD. Cardiovascular: Regular rate and rhythm. No murmurs, gallops, or rubs. Chest: Tachypneic but no increased work of breathing. Able to talk in complete sentences. Poor air movement, no crackles or wheezes. Abdomen: Bowel sounds present. Soft, nondistended, nontender. No hepatosplenomegaly or masses. Extremities: 1+ bilateral pedal edema without any trace of ankle edema or edema higher in the legs, no cyanosis or clubbing. Skin: No jaundice, no pallor, no rashes on visible skin. Neuro: Grossly intact. No focal deficits. Const: Vital Signs, click to edit/add: Vital Signs - 24 hr 06/11/25 10:51 06/11/25 11:07 06/11/25 11:10 Temperature 97.5 F L Pulse Rate 87 82 Pulse Rate [Pulse Oximeter] 93 Pulse Rate [Right Radial] Respiratory Rate 28 H 27 H Blood Pressure 154/73 H Blood Pressure [Le ft Arm] Blood Pressure [Ri ght Upper Arm] 158/96 H Pulse Oximetry 73 L 91 92 Oxygen Delivery Me thod Room Air Oxygen Flow Rate 06/11/25 11:15 06/11/25 11:28 06/11/25 11:30 Temperature Pulse Rate 91 85 Pulse Rate [Pulse Oximeter] Pulse Rate [Right Radial] Respiratory Rate 22 16 Blood Pressure Blood Pressure [Le ft Arm] Blood Pressure [Ri ght Upper Arm] Pulse Oximetry 93 91 91 Oxygen Delivery Me thod Oxygen Flow Rate 06/11/25 11:31 06/11/25 11:47 06/11/25 12:00 Temperature Pulse Rate 87 83 85 Pulse Rate [Pulse Oximeter] Pulse Rate [Right Radial] Respiratory Rate 30 H 37 H Blood Pressure 139/87 Blood Pressure [Le ft Arm] Blood Pressure [Ri ght Upper Arm] Pulse Oximetry 91 94 92 Oxygen Delivery Me thod Oxygen Flow Rate 06/11/25 12:04 06/11/25 12:15 06/11/25 12:30 Temperature Pulse Rate 79 82 81 Pulse Rate [Pulse Oximeter] Pulse Rate [Right Radial] Respiratory Rate 55 H 32 H 29 H Blood Pressure Blood Pressure [Le ft Arm] Blood Pressure [Ri ght Upper Arm] Pulse Oximetry 92 92 92 Oxygen Delivery Me thod Oxygen Flow Rate 06/11/25 12:53 06/11/25 12:53 06/11/25 15:00 Temperature 97.6 F Pulse Rate 92 Pulse Rate [Pulse Oximeter] Pulse Rate [Right Radial] 81 Respiratory Rate 20 20 Blood Pressure Blood Pressure [Le ft Arm] 167/83 H Blood Pressure [Ri ght Upper Arm] Pulse Oximetry 93 93 Oxygen Delivery Me thod Nasal Cannula Nasal Cannula Oxygen Flow Rate 2 2 06/11/25 15:00 Temperature 97.8 F Pulse Rate Pulse Rate [Pulse Oximeter] Pulse Rate [Right Radial] 88 Respiratory Rate 20 Blood Pressure Blood Pressure [Le ft Arm] 149/92 H Blood Pressure [Ri ght Upper Arm] Pulse Oximetry 91 Oxygen Delivery Me thod Nasal Cannula Oxygen Flow Rate 2 Hospitalist - H&P: Result Labs Labs: Short CBC 06/11/25 Range/Units 11:22 WBC 7.24 (4.50-11.00) K/uL Hgb 14.3 (12.0-16.0) gm/dL Hct 44.5 (33.0-51.0) % Plt Count 222 (140-440) K/uL BMP 06/11/25 11:22 Sodium 139 Potassium 3.7 Chloride 102 Carbon Dioxide 24 BUN 13 Creatinine 0.7 Glucose 103 Calcium 9.2 Cardiac Enzymes 06/11/25 Range/Units 11:22 Troponin I 0.03 (0.01-0.04) ng/mL ProBNP 293 pg/ml Ordering Physician: Radha Sullivan M.D. Date of Service: 06/11/25 Procedure(s): XR chest 2V Accession Number(s): [id number] cc: Romel Moffett M.D.; Radha Sullivan M.D.~ For Patients: As a result of the Century Cures Act, medical imaging exams and procedure reports are released immediately into your electronic medical record. You may view this report before your referring provider. If you have questions, please contact your health care provider. Indication: Shortness of breath Comparison: Two-view chest July 21, 2022 Technique: PA and lateral views of the chest Findings: There is hyperinflation and chronic interstitial change with minimal subtle airspace opacity in the inferior right upper lobe. Small basilar effusions are appreciated. There is no pneumothorax. The cardiac silhouette is mildly prominent. The bony thorax is grossly intact. Impression: Hyperinflation and chronic interstitial changes with increased airspace opacity in the peripheral right upper lobe which may represent developing infiltrates. Dictated by Sebastian Callaway MD @ 06/11/2025 12:03:28 PM (Electronically Signed)
[2025-06-11] MEDS: SODIUM CHLORIDE 0.9 % (FLUSH) 10 ML SYRINGE 5 ML IVF (20:14)
[2025-06-11] MEDS: LOPERAMIDE HCL 2 MG CAPSULE PO (20:14)
[2025-06-12] VITALS (7 sets, daily range): BP systolic 126–152; BP diastolic 70–95; PULSE 59–89; RESP 16–20; TEMP 35.8–36.7; O2SAT 89–95
--- NOTE | 2025-06-12 06:09 | PC.NURSE ---
Shift Note: Pt friendly and cooperative, able to verbalize her needs. Moving independently throughout her room and to the BR without difficulty. Using 2L/O2 via NC with activity. O2 titrated down to 1L overnight. Pt denies pain. Denies dyspnea. Denied nausea overnight, pt states this mostly occurs after meals.
[2025-06-12] MEDS: IPRAT-ALBUT 0.5-2.5 MG/3 ML NEB 1 NEB IH ×2 (08:09→18:27)
[2025-06-12] MEDS: AZITHROMYCIN 250 MG TABLET PO (08:19)
[2025-06-12] MEDS: LOPERAMIDE HCL 2 MG CAPSULE PO ×2 (08:19→20:45)
--- NOTE | 2025-06-12 10:09 | RESP.RT ---
Pt seen this AM, on 1L oxygen, SPO2 92% Pt is tachypneic on return to bathroom, at 30 breaths per minute. She recovers in 3 minutes. Reviewed MDIs with her. She does have good technique, initially questioned if she had enough inspiratory flow to activate the inhalers, but she did. She administered her personal MDIs of Spiriva and Serevent she does not use any inhaled steroids. States she has the BREO/Ellipta at home however it does not work for her. She needs to be on home oxygen. Reports buying a compressor from [employer], it has not arrived yet, and will probably purchase another one for another area of the home. Obviously there are many questions around this and how prudent it is. Strongly suggest follow up with pulmonary. It is likely she will have to have home oxygen from a medical company when she DCs
[2025-06-12] MEDS: SODIUM CHLORIDE 0.9 % (FLUSH) 10 ML SYRINGE 5 ML IVF ×2 (12:03→20:46)
[2025-06-12] MEDS: cefTRIAXone 2 GM in 0.9 % SODIUM CHLORIDE Mini-bag 100 ML IVPB (12:04)
--- NOTE | 2025-06-12 16:36 | PM.IMPN1 ---
Assessment and Plan Assessment and plan (1) Acute hypoxic respiratory failure: Problem comment: - Acute on chronic - Some improvement overnight. Continue supplemental oxygen with tight parameters to prevent hypercapnea, continue treatment of COPD exacerbation and suspected pneumonia. Appreciate respiratory therapy consult. Status: Acute (2) Chronic respiratory failure with hypoxia: Problem comment: - Was on chronic oxygen two years ago, but self discontinued due to cost - Follows with Dr. Gonzalez, services account manager Status: Acute (3) Pneumonia: Problem comment: Continue 3 day total course of ceftriaxone and azithromycin Status: Suspected (4) COPD (chronic obstructive pulmonary disease): Problem comment: - Dr. Gonzalez, services account manager - gold B - acute on chronic exacerbation - Continue treatment with DuoNebs, prednisone. Patient desires duonebs for homegoing. Status: Acute (5) Anxiety: Status: Acute Plan Continue treatment of acute on chronic hypoxemic respiratory failure and COPD exacerbation. ProBNP is unremarkable, I think pedal edema is secondary to lymphedema rather than cardiac. Notably procalcitonin is also unremarkable, and patient's white count is within normal limits, pneumonia is less likely, but will treat with antibiotics for now since they will also help with COPD exacerbation. Consider short course of antibiotics. Start schedule DuoNebs, p.r.n. albuterol nebs, supplemental oxygen, keeping O2 sats between 88 and 90%, avoiding higher than that to prevent CO2 retention, oral prednisone 60 mg daily, ceftriaxone and azithromycin, continue home loperamide in roflumilast. Also consult respiratory therapy. Suspect patient will need to resume home oxygen on discharge. VTE prophylaxis with SCDs and low-dose enoxaparin. Total Time Spent Total Time Spent: Today I spent 35 minutes seeing the patient, reviewing Expanse and EPIC notes/diagnostics/labs, discussing the care plan with our care team that includes social work, PT/OT, pharmacy, RT, care home and documenting my impressions and plan in the medical record. Subjective Time Seen by Provider: 11:45 Date Seen: 06/12/25 Interval history: Carmela is feeling somewhat better today, but continues to have dyspnea with ambulation to the bathroom, even while on oxygen. No new symptoms today. Patient is very anxious and would like to restart her usual home inhalers in addition to the medications we are giving her here. Exam Narrative: Exam Narrative: General: No acute distress. Awake, alert, oriented. No pallor. No jaundice. Oropharynx: Clear. Mucous membranes moist. Cardiovascular: Regular rate and rhythm. No murmurs, gallops, or rubs. Respiratory: No tachypnea. No increased work of breathing. Able to talk in complete sentences. Air movement is slightly improved, but remains poor overall. No crackles or wheezes. Abdomen: Bowel sounds present. Soft, nondistended, nontender. Extremities: Trace bilateral pedal edema, no edema of ankles. Const: Vital Signs, click to edit/add: Vital Signs - 24 hr 06/11/25 19:00 06/11/25 19:49 06/11/25 23:00 Temperature 98.3 F Pulse Rate 74 74 Pulse Rate [Right Radial] 84 Respiratory Rate 20 Blood Pressure [Le ft Arm] 150/85 H Pulse Oximetry 89 Oxygen Delivery Me thod Nasal Cannula Oxygen Flow Rate 2 06/11/25 23:00 06/11/25 23:00 06/11/25 23:00 Temperature 97.6 F Pulse Rate Pulse Rate [Right Radial] 76 85 Respiratory Rate 20 20 20 Blood Pressure [Le ft Arm] 129/69 Pulse Oximetry 90 92 Oxygen Delivery Me thod Nasal Cannula Nasal Cannula Oxygen Flow Rate 2 2 06/12/25 03:00 06/12/25 08:11 06/12/25 08:11 Temperature 98 F 97.0 F L Pulse Rate Pulse Rate [Right Radial] 77 59 L Respiratory Rate 20 18 18 Blood Pressure [Le ft Arm] 126/70 137/79 Pulse Oximetry 95 91 91 Oxygen Delivery Me thod Nasal Cannula Nasal Cannula Nasal Cannula Oxygen Flow Rate 2 1 1 06/12/25 10:13 06/12/25 12:01 Temperature 96.9 F L Pulse Rate 64 Pulse Rate [Right Radial] 78 Respiratory Rate 20 Blood Pressure [Le ft Arm] 152/78 H Pulse Oximetry 90 Oxygen Delivery Me thod Nasal Cannula Oxygen Flow Rate 1
--- NOTE | 2025-06-12 22:43 | PC.NURSE ---
pt a/o x4, up adlib in room. Pt reported no pain throughout shift. pt on 1L NS, pt on regular diet meal tolerated. Pt sleeping in bed at this time, chest rise and fall noted.
[2025-06-13] VITALS (7 sets, daily range): BP systolic 120–141; BP diastolic 68–90; PULSE 59–95; RESP 16–20; TEMP 36.1–36.6; O2SAT 82–94
--- NOTE | 2025-06-13 05:55 | PC.NURSE ---
[id number] Pt slept during night, 1LPM NC O2 while sleeping. up independently. denies pain, sob, N/V, or difficulty breathing
[2025-06-13] MEDS: IPRAT-ALBUT 0.5-2.5 MG/3 ML NEB 1 NEB IH (08:04)
[2025-06-13] MEDS: AZITHROMYCIN 250 MG TABLET PO (08:08)
[2025-06-13] MEDS: LOPERAMIDE HCL 2 MG CAPSULE PO (08:08)
[2025-06-13] MEDS: SODIUM CHLORIDE 0.9 % (FLUSH) 10 ML SYRINGE 5 ML IVF (08:09)
[2025-06-13] MEDS: cefTRIAXone 2 GM in 0.9 % SODIUM CHLORIDE Mini-bag 100 ML IVPB (11:36)
--- NOTE | 2025-06-13 12:48 | PM.DS1 ---
DS: Providers Provider Date Seen: 06/13/25 Date of admission: 06/11/25 12:48 Primary care physician: Romel Moffett MD Admitting Clinician: Marta Ohara MD Consults: 06/11/25 13:47 Consult to Respiratory Therapy [CONS] Routine Comment: Reason(s) for RT Consult:: Consult Attending Physician on discharge: Luh Delgado MD Date of Discharge: 06/13/25 DS: Diagnosis Discharge Diagnosis (1) Acute hypoxic respiratory failure: Status: Acute Problem details: - Acute on chronic - treated with antibiotics, supplemental oxygen, nebs, steroids, followed by RT (2) Chronic respiratory failure with hypoxia: Status: Acute Problem details: - Was on chronic oxygen two years ago, but self discontinued due to cost - Follows with Dr. Gonzalez, provider relations coordinator (3) Pneumonia: Status: Suspected Problem details: - appeared to have increased airspace opacity in peripheral right upper lobe on CXR, possible developing infiltrate, treated with Ceftriaxone and Azithromycin (4) COPD (chronic obstructive pulmonary disease): Status: Acute Problem details: - Dr. Gonzalez, provider relations coordinator - gold B - acute on chronic exacerbation - Continue treatment with DuoNebs, prednisone, supplemental oxygen (5) Anxiety: Status: Acute DS: Summary Hospital Course Hospital Course: Carmela was admitted to the hospital on 06/11/2025 for acute on chronic hypoxic respiratory failure in the setting of COPD exacerbation. Treated with antibiotics, nebs, steroids, supplemental oxygen. Followed by RT. Oxygen need decreased and symptomatic Sobia patient improved, requesting discharge home on 06/13/2025. She met criteria for home supplemental oxygen per RT evaluation; this was ordered upon discharge. She is discharging home on full course of Azithromycin, steroid taper, supplemental oxygen, close PCP f/u. Status at Discharge Overall status at discharge: patient is progressing back to baseline Time Spent with Patient Time attestation: Total time spent providing and/or coordinating discharge services: Time spent: Greater than 30 minutes Specific discharge activities: Medication reconciliation, multidisciplinary team discussion, home oxygen Exam Narrative: Exam Narrative: GEN: Alert and oriented, nontoxic, speaking in full sentences without tachypnea HEENT: EOMIs bilaterally, no scleral icterus CV: RRR, No concerning murmurs R: Decreased breath sounds throughout, no significant wheezing Ext: wwp, no concerning edema Neuro: Nonfocal Psych: Appropriate Const: Vital Signs, click to edit/add: Vital Signs - 24 hr 06/12/25 15:00 06/12/25 15:00 06/12/25 15:00 Temperature 96.5 F L Pulse Rate Pulse Rate [Left P ulse Oximeter] 76 76 Pulse Rate [Right Radial] 78 Respiratory Rate 16 16 Blood Pressure [Le ft Arm] 139/82 Pulse Oximetry 91 91 Oxygen Delivery Me thod Nasal Cannula Nasal Cannula Oxygen Flow Rate 1 1 06/12/25 15:00 06/12/25 19:00 06/12/25 23:00 Temperature 96.5 F L Pulse Rate 87 Pulse Rate [Left P ulse Oximeter] 81 Pulse Rate [Right Radial] Respiratory Rate 18 18 Blood Pressure [Le ft Arm] 144/89 H Pulse Oximetry 89 Oxygen Delivery Me thod Nasal Cannula Oxygen Flow Rate 1 06/12/25 23:00 06/12/25 23:00 06/13/25 03:10 Temperature 98.1 F 97.8 F Pulse Rate Pulse Rate [Left P ulse Oximeter] 89 59 L Pulse Rate [Right Radial] Respiratory Rate 18 18 16 Blood Pressure [Le ft Arm] 147/95 H 120/68 Pulse Oximetry 89 89 94 Oxygen Delivery Me thod Nasal Cannula Nasal Cannula Nasal Cannula Oxygen Flow Rate 1 1 1 06/13/25 04:07 06/13/25 07:00 06/13/25 07:00 Temperature 96.9 F L Pulse Rate 69 88 Pulse Rate [Left P ulse Oximeter] 66 Pulse Rate [Right Radial] Respiratory Rate 18 Blood Pressure [Le ft Arm] 141/90 H Pulse Oximetry 94 Oxygen Delivery Me thod Nasal Cannula Oxygen Flow Rate 1 06/13/25 07:00 06/13/25 07:00 06/13/25 10:48 Temperature 97.3 F L Pulse Rate Pulse Rate [Left P ulse Oximeter] 66 95 Pulse Rate [Right Radial] Respiratory Rate 18 18 17 Blood Pressure [Le ft Arm] 124/77 Pulse Oximetry 94 94 Oxygen Delivery Me thod Nasal Cannula Nasal Cannula Oxygen Flow Rate 1 1 06/13/25 12:14 Temperature Pulse Rate Pulse Rate [Left P ulse Oximeter] Pulse Rate [Right Radial] Respiratory Rate 20 Blood Pressure [Le ft Arm] Pulse Oximetry 90 Oxygen Delivery Me thod Nasal Cannula Oxygen Flow Rate 1 DS: Data Data Completed and Pending Labs on day of discharge: Preliminary micro results at discharge 06/11/25 12:35 Blood Culture - Preliminary Blood NO GROWTH AFTER 48 HOURS 06/11/25 12:29 Blood Culture - Preliminary Blood NO GROWTH AFTER 48 HOURS Discharge Plan Discharge Disposition: Home, Self-Care Date of Admission: 06/11/25 12:48 Attending Provider on Discharge: Luh Delgado Primary Care Provider: Romel Moffett Condition: Improved Anticipated Discharge Date/Time: 06/13/25 11:30 Discharge Medications: New ipratropium-albuterol 0.5 mg-3 mg(2.5 mg base)/3 mL Solution For Nebulization 3 ml inhalation Q6H Qty: 90 0RF albuterol sulfate 2.5 mg /3 mL (0.083 %) Solution For Nebulization 2.5 mg NEB Q4H PRN (Reason: Dyspnea or wheezing) Qty: 90 0RF azithromycin 250 mg Tablet 250 mg PO Q24H Qty: 3 0RF Taper: Z-LIZ 250 mg Q24H for 2 Days and 0 Hour Rx Instructions: 2 more doses to complete 5 day course prednisone 10 mg tablet 10 mg PO DIRECTED Qty: 43 0RF Rx Instructions: 4 tabs po x4d, then 3 tabs po x4d, then 2tabs po x4d, then 1 tab po x7d, then stop Continued loperamide 2 mg capsule 2 mg PO BID Patient Comments: TAKE 1 CAPSULE BY MOUTH EVERY MORNING tiotropium bromide [Spiriva with HandiHaler] 18 mcg capsule, w/inhalation device 1 cap INHALATION DAILY roflumilast 500 mcg tablet 500 mcg PO DAILY fluticasone propion-salmeterol 500-50 mcg/dose blister with device 1 ea INHALATION Q12H albuterol sulfate 90 mcg/actuation HFA aerosol inhaler 1 - 2 puff INHALATION .PRN PRN Discharge Orders: Discharge Order (Routine); Ordered 06/13/25 Ordered By: Luh Delgado Patient Education: Albuterol (By breathing), Ipratropium (By breathing), Prednisone (By mouth), Azithromycin (By mouth), COPD (Chronic Obstructive Pulmonary Disease) (DC), Pneumonia (DC) Additional Instructions: Sent to [facility]: Nebs, 2 more days of Azithromycin, Prednisone taper Keep an eye on your symptoms and O2 saturation, return with any new or worsening concerns Activity Level: Activity as Tolerated Discharge Diet: Regular Follow Up Appointments: Romel Moffett MD [Primary Care Provider, Family Practice] - 06/19/25 11:45 am Referral Note: Forms: [employer] Info Instructions
--- NOTE | 2025-06-13 12:54 | PC.SOCIAL ---
Discharge planning: silk worker met with the pt and her at their request and provided them with information on [employer] out of [place] (they work with people all over the state of [place] and do a lot of virtual appointments/zoom calls for applying for disability), as the pt had more questions on filing for disability because it is getting harder and harder for her to work with her health condition. Pt's also had questions about FMLA. silk worker encouraged pt's to talk to his HR department and also look into [place]'s new Paid Family and Medical Leave law effective July 19, 2025. Pt and her were thankful for the information. Social work to follow-up as needed.
--- NOTE | 2025-06-13 15:13 | PC.NURSE ---
Discharge: Patient pleasant and cooperative, A&O. VSS, afebrile. SOB w/ activity. Discharge instructions provided, all questions answered. D/C to home with family
== END 2025-06-13 15:00 | disposition home or self-care (01) | DRG 133 ==
LOC: ED 12:20 → MEDSURG 15:00 → ED 15:02 → MEDSURG 15:28
PROVIDERS: Admitting Provider Family Medicine; Emergency Provider Family Medicine; PCP Surgery; Visit Provider Family Medicine
DX: J96.21 Acute and chronic respiratory failure with hypoxia (principal); J44.0 Chronic obstructive pulmonary disease with (acute) lower respiratory infection; J18.9 Pneumonia, unspecified organism; J44.1 Chronic obstructive pulmonary disease with (acute) exacerbation; F41.9 Anxiety disorder, unspecified; F10.10 Alcohol abuse, uncomplicated; Z87.891 Personal history of nicotine dependence; I89.0 Lymphedema, not elsewhere classified
CPT/HCPCS: 36415; 71046; 80048; 83735; 83880; 84145; 84484; 85025; 87040; 87631; 93005; 94761; 99284; 99285; A9270; J0456; J0696; J2919; J7050; J7512